=== PATIENT | male | born 1940 | race Caucasian/White ===

== ENCOUNTER 2016-03-11 18:14 | Inpatient (IN) | payer OTHER ==
[~2016-03-11] VITALS: Ht 182.9 cm; Wt 106.6 kg
[~2016-03-11 18:14] MED LIST: ACET-868 PO; ALBU8.5H2 IH; DILT180C9 PO; FLUT1DIS3 IH; FURO80TA PO; HYDR-3026 PO; INSU100V13 SQ; INSU100V27 SQ; IPRA3AMP IH; LIRA0.6P; METO25TA6 PO; ROSU10TA PO; TIOT4MIS5 IH; WARF5TAB77 PO; WARF6TAB23 PO
[2016-03-11 18:37] LABS: BASOPHILS # (AUTO) 0.4 /CMM (0.0-0.2); EOSINOPHILS # (AUTO) 0.3 /CMM (0.0-0.7); EOSINOPHILS % (AUTO) 4.1 % (0.0-6.0); HEMATOCRIT 31 % (39-51); LYMPHOCYTES # (AUTO) 0.8 /CMM (0.8-4.8); LYMPHOCYTES % (AUTO) 12.8 % (20.0-44.0); MEAN CORPUSCULAR HEMOGLOBIN 31 PG (26.0-33.0); MEAN CORPUSCULAR HGB CONC 33 g/dl (31.0-36.0); MEAN CORPUSCULAR VOLUME 96 fL (80-96); MONOCYTES # (AUTO) 0.3 /CMM (0.1-1.30); MONOCYTES % (AUTO) 4.7 % (2.0-12.0); NEUTROPHILS # (AUTO) 4.8 /CMM (1.8-8.9); PLATELET COUNT (AUTO) 222 /CMM (150-450); WHITE BLOOD COUNT (AUTO) 6.6 K/uL (4.3-11.0)
[2016-03-11 18:38] LABS: BASOPHILS % (AUTO) 6.4 % (0.0-2.0); DIFF TOTAL % 100 %
[2016-03-11 18:47] LABS: CALCIUM, SERUM 8.7 mg/dL (8.5-10.1); POTASSIUM 3.1 mmol/L (3.5-5.1)
[2016-03-11 18:51] LABS: INR 2.62 (0.87-1.13); PROTHROMBIN TIME 27.5 SECS (9.5-12.7)
[2016-03-11 19:27] LABS: TROPONIN I 0.042 ng/mL (0.00-0.056)
[2016-03-11 19:54] LABS: EOSINOPHILS % (MANUAL) 1 % (0-4); LYMPHOCYTES % (MANUAL) 13 % (16-48); PLATELET ESTIMATE ADEQUATE
[2016-03-11] MEDS ORDERED: POTASSIUM CHLORIDE 10 MEQ/50 ML PREMIXED IVPB FOR PERIPHERAL LINE IV ONE (20:00)
[2016-03-11] MEDS ORDERED: POTASSIUM CHLORIDE 20 MEQ TAB.PRT.SR PO ONE ×2 (20:00→20:40)
[2016-03-11] MEDS ORDERED: FUROSEMIDE 100 MG/10 ML VIAL IV ONE (20:30)
[2016-03-11] MEDS ORDERED: POTASSIUM CL. PREMIX PERIPHER. 200 ML ONE (20:40)
[2016-03-11] MEDS ORDERED: IV SET PRIMARY PUMP SET 1 EA INFUS.SET MC ONE (20:40)
[2016-03-11] MEDS ORDERED: FUROSEMIDE 100 MG/10 ML VIAL ONE (20:40)
[2016-03-11 22:30] VITALS: BP 128/66
[2016-03-11] MEDS ORDERED: ONDANSETRON HCL/PF 4 MG/2 ML VIAL IVP PRN (22:30)
[2016-03-11] MEDS ORDERED: HYDROCODONE/APAP 5/325MG 1 EACH TABLET PO PRN (22:30)
[2016-03-11] MEDS ORDERED: Z GUARD REMEDY 2 OZ OINT TP PRN (22:30)
[2016-03-11] MEDS ORDERED: MAGNESIUM HYDROXIDE 30 ML UDC PO PRN (22:30)
[2016-03-11] MEDS ORDERED: MAG HYDROX/AL HYDROX/SIMETH 30 ML UDC PO PRN (22:30)
[2016-03-11] MEDS ORDERED: ZOLPIDEM TARTRATE 5 MG TABLET PO PRN (22:30)
[2016-03-11] MEDS ORDERED: ACETAMINOPHEN 325 MG TABLET PO PRN (22:30)
[2016-03-12] VITALS (8 sets, daily range): BP systolic 112–135; BP diastolic 56–75
[2016-03-12] MEDS ORDERED: POTASSIUM CHLORIDE 20 MEQ TAB.PRT.SR PO ONE ×2 (00:21→00:30)
[2016-03-12] MEDS ORDERED: DEXTROSE 50%-WATER 50 ML DISP.SYRIN IV PRN (04:00)
[2016-03-12] MEDS ORDERED: Medication Not On Formulary EA (Ipratropium/Albuterol Sulfate (Duoneb 2.5-0.5 Mg/3 Ml So IH PRN (04:00)
[2016-03-12] MEDS ORDERED: ALBUTEROL SULFATE 8 GM HFA.AER.AD IH PRN (04:00)
[2016-03-12] MEDS ORDERED: ACETAMINOPHEN 325 MG TABLET ONE (05:44)
[2016-03-12] MEDS: BLOOD SUGAR DIAGNOSTIC 1 EACH STRIP IN SCH ×4 (06:24→21:20)
[2016-03-12] MEDS: *INSULIN REGULAR(HUMULIN R)HUM 100 UNIT/ML VIAL SQ PRN ×2 (06:27→21:30)
[2016-03-12 07:33] LABS: BASOPHILS % (AUTO) 0.7 % (0.0-2.0); DIFF TOTAL % 100 %; EOSINOPHILS # (AUTO) 0.3 /CMM (0.0-0.7); EOSINOPHILS % (AUTO) 5.8 % (0.0-6.0); HEMATOCRIT 30 % (39-51); HEMOGLOBIN 9.7 g/dL (13.5-17.5); LYMPHOCYTES # (AUTO) 0.6 /CMM (0.8-4.8); LYMPHOCYTES % (AUTO) 11.6 % (20.0-44.0); MEAN CORPUSCULAR HEMOGLOBIN 32 PG (26.0-33.0); MEAN CORPUSCULAR HGB CONC 33 g/dl (31.0-36.0); MEAN CORPUSCULAR VOLUME 97 fL (80-96); MONOCYTES # (AUTO) 0.4 /CMM (0.1-1.30); MONOCYTES % (AUTO) 6.6 % (2.0-12.0); NEUTROPHILS # (AUTO) 4.2 /CMM (1.8-8.9); NEUTROPHILS % (AUTO) 75.3 % (43.0-81.0); PLATELET COUNT (AUTO) 222 /CMM (150-450); RED BLOOD CELL COUNT(AUTO) 3.06 MIL/uL (4.5-6.0); WHITE BLOOD COUNT (AUTO) 5.6 K/uL (4.3-11.0)
[2016-03-12 07:49] LABS: CALCIUM, SERUM 8.3 mg/dL (8.5-10.1); CREATININE 1.8 mg/dL (0.6-1.3); PHOSPHORUS 3.3 mg/dL (2.5-4.9); POTASSIUM 3.7 mmol/L (3.5-5.1)
[2016-03-12] MEDS ORDERED: HEPARIN SODIUM, PORCINE 5000 UNITS/1 ML VIAL SQ SCH ×2 (09:00→21:00)
[2016-03-12] MEDS ORDERED: Medication Not On Formulary EA (Tiotropium Bromide (Spiriva Respimat) 2 PUFF) IH SCH (09:00)
[2016-03-12] MEDS ORDERED: FUROSEMIDE 20 MG/2 ML VIAL IV SCH (09:00)
[2016-03-12] MEDS ORDERED: Medication Not On Formulary EA (Liraglutide (Victoza) 1.8 MG) SCH (09:00)
[2016-03-12] MEDS ORDERED: WARFARIN SODIUM 5 MG TABLET PO SCH (09:00)
[2016-03-12] MEDS: FLUTICASONE/SALMETEROL DISKUS IH SCH ×2 (09:00→21:20)
[2016-03-12] MEDS: PANTOPRAZOLE 40 MG VIAL IV SCH (09:32)
[2016-03-12] MEDS: ALBUTEROL FS 2.5 MG/0.5 ML VIAL.NEB NEB SCH ×4 (11:37→23:11)
[2016-03-12] MEDS ORDERED: METOLAZONE 2.5 MG TABLET PO ONE (12:00)
[2016-03-12] MEDS ORDERED: hydrOXYzine PAMOATE 25 MG CAPSULE PO PRN (13:00)
[2016-03-12] MEDS: INSULIN REGULAR, HUMAN 100 UNIT/ML 3 ML VIAL SQ PRN ×2 (13:23→17:19)
[2016-03-12] MEDS ORDERED: ALBUTEROL FS 2.5 MG/0.5 ML VIAL.NEB NEB PRN (13:30)
[2016-03-12] MEDS: FUROSEMIDE 20 MG/2 ML VIAL IV SCH (17:17)
[2016-03-12] MEDS: METOPROLOL SUCCINATE 50 MG TAB.SR.24H PO SCH (17:18)
[2016-03-12] MEDS: ATORVASTATIN 10 MG TABLET PO SCH (21:19)
[2016-03-12] MEDS: INSULIN DETEMIR 100 UNIT/ML CARTRIDGE SQ SCH (21:30)
[2016-03-12] MEDS ORDERED: Medication Not On Formulary EA (Rosuvastatin Calcium (Crestor) 10 MG) PO SCH (22:00)
[2016-03-12] MEDS ORDERED: METOPROLOL TARTRATE 25 MG TABLET PO SCH (22:00)
[2016-03-13] VITALS (7 sets, daily range): BP systolic 100–134; BP diastolic 52–69
[2016-03-13] MEDS: ALBUTEROL FS 2.5 MG/0.5 ML VIAL.NEB NEB SCH ×6 (03:27→23:21)
[2016-03-13] MEDS: BLOOD SUGAR DIAGNOSTIC 1 EACH STRIP IN SCH ×4 (06:32→21:14)
[2016-03-13] MEDS: INSULIN REGULAR, HUMAN 100 UNIT/ML 3 ML VIAL SQ PRN ×3 (06:35→18:39)
[2016-03-13] MEDS: IPRATROPIUM NEB FS 0.5 MG/2.5 ML AMPUL.NEB NEB PRN ×3 (07:11→15:22)
[2016-03-13 07:38] LABS: BASOPHILS % (AUTO) 0.4 % (0.0-2.0); DIFF TOTAL % 100 %; EOSINOPHILS # (AUTO) 0.3 /CMM (0.0-0.7); EOSINOPHILS % (AUTO) 4.4 % (0.0-6.0); HEMATOCRIT 30 % (39-51); HEMOGLOBIN 9.8 g/dL (13.5-17.5); LYMPHOCYTES # (AUTO) 0.7 /CMM (0.8-4.8); LYMPHOCYTES % (AUTO) 12.2 % (20.0-44.0); MEAN CORPUSCULAR HEMOGLOBIN 32 PG (26.0-33.0); MEAN CORPUSCULAR HGB CONC 33 g/dl (31.0-36.0); MEAN CORPUSCULAR VOLUME 96 fL (80-96); MONOCYTES # (AUTO) 0.3 /CMM (0.1-1.30); MONOCYTES % (AUTO) 5.7 % (2.0-12.0); NEUTROPHILS # (AUTO) 4.4 /CMM (1.8-8.9); NEUTROPHILS % (AUTO) 77.3 % (43.0-81.0); PLATELET COUNT (AUTO) 205 /CMM (150-450); RED BLOOD CELL COUNT(AUTO) 3.09 MIL/uL (4.5-6.0); WHITE BLOOD COUNT (AUTO) 5.7 K/uL (4.3-11.0)
[2016-03-13 07:59] LABS: CALCIUM, SERUM 8.7 mg/dL (8.5-10.1); CREATININE 1.8 mg/dL (0.6-1.3); POTASSIUM 3.2 mmol/L (3.5-5.1)
[2016-03-13 08:01] LABS: INR 1.79 (0.87-1.13); PROTHROMBIN TIME 19.4 SECS (9.5-12.7)
[2016-03-13] MEDS: FLUTICASONE/SALMETEROL DISKUS IH SCH ×2 (10:36→20:23)
[2016-03-13] MEDS: PANTOPRAZOLE 40 MG VIAL IV SCH (10:36)
[2016-03-13] MEDS: FUROSEMIDE 20 MG/2 ML VIAL IV SCH ×2 (10:38→18:57)
[2016-03-13] MEDS ORDERED: POTASSIUM CHLORIDE 10 MEQ TABLET.SA PO ONE (12:00)
[2016-03-13] MEDS ORDERED: DILTIAZEM 240 MG PO SCH (14:00)
[2016-03-13] MEDS: METOPROLOL SUCCINATE 50 MG TAB.SR.24H PO SCH (17:00)
[2016-03-13] MEDS: WARFARIN SODIUM 2 MG TABLET PO SCH (18:56)
[2016-03-13] MEDS: ATORVASTATIN 10 MG TABLET PO SCH ×3 (21:14→21:19)
[2016-03-13] MEDS: DILTIAZEM HCL CD 180 MG PO SCH (21:15)
[2016-03-13] MEDS: INSULIN DETEMIR 100 UNIT/ML CARTRIDGE SQ SCH (21:24)
[2016-03-13] MEDS: *INSULIN REGULAR(HUMULIN R)HUM 100 UNIT/ML VIAL SQ PRN (21:26)
[2016-03-14] VITALS (10 sets, daily range): BP systolic 93–126; BP diastolic 55–69
[2016-03-14] MEDS: ALBUTEROL FS 2.5 MG/0.5 ML VIAL.NEB NEB SCH ×6 (03:30→23:26)
[2016-03-14] MEDS: INSULIN REGULAR, HUMAN 100 UNIT/ML 3 ML VIAL SQ PRN ×2 (06:18→12:38)
[2016-03-14] MEDS: BLOOD SUGAR DIAGNOSTIC 1 EACH STRIP IN SCH ×4 (06:19→21:20)
[2016-03-14 07:58] LABS: CALCIUM, SERUM 8.7 mg/dL (8.5-10.1); CREATININE 1.8 mg/dL (0.6-1.3)
[2016-03-14] MEDS: FLUTICASONE/SALMETEROL DISKUS IH SCH ×2 (09:20→21:05)
[2016-03-14] MEDS: FUROSEMIDE 20 MG/2 ML VIAL IV SCH ×2 (09:21→16:49)
[2016-03-14] MEDS: PANTOPRAZOLE 40 MG VIAL IV SCH (09:21)
[2016-03-14] MEDS: DILTIAZEM HCL CD 180 MG PO SCH (09:21)
[2016-03-14] MEDS ORDERED: POTASSIUM CHLORIDE 20 MEQ TAB.PRT.SR PO ONE (10:00)
[2016-03-14] MEDS ORDERED: POTASSIUM CHLORIDE 10 MEQ TABLET.SA PO ONE (11:00)
[2016-03-14] MEDS ORDERED: IPRATROPIUM NEB FS 0.5 MG/2.5 ML AMPUL.NEB NEB PRN (13:30)
[2016-03-14] MEDS ORDERED: GUAIFENESIN/CODEINE 10 ML UDC PO PRN (13:30)
[2016-03-14] MEDS ORDERED: LEVOFLOXACIN 750 MG /D5W 150ML 750 MG in PREMIX 1 EA IV SCH (14:00)
[2016-03-14] MEDS ORDERED: IV SET PRIMARY PUMP SET 1 EA INFUS.SET MC ONE (16:39)
[2016-03-14] MEDS: LEVOFLOXACIN 750 MG /D5W 150ML 750 MG in PREMIX 1 EA IV SCH (16:47)
[2016-03-14] MEDS: FLUTICASONE PROPIONATE 16 GM BOTTLE NS SCH ×2 (16:49→21:06)
[2016-03-14] MEDS: predniSONE 20 MG TABLET PO SCH (16:50)
[2016-03-14] MEDS: WARFARIN SODIUM 2 MG TABLET PO SCH (16:51)
[2016-03-14] MEDS: METOPROLOL SUCCINATE 50 MG TAB.SR.24H PO SCH (16:53)
[2016-03-14] MEDS: GUAIFENESIN 300 MG/15 ML UDC PO PRN (21:12)
[2016-03-14] MEDS: *INSULIN REGULAR(HUMULIN R)HUM 100 UNIT/ML VIAL SQ PRN (21:26)
[2016-03-14] MEDS: INSULIN DETEMIR 100 UNIT/ML CARTRIDGE SQ SCH (21:33)
[2016-03-14] MEDS: ATORVASTATIN 10 MG TABLET PO SCH (21:33)
[2016-03-15] VITALS (8 sets, daily range): BP systolic 101–120; BP diastolic 55–73
[2016-03-15] MEDS: ALBUTEROL FS 2.5 MG/0.5 ML VIAL.NEB NEB SCH ×6 (03:37→23:24)
[2016-03-15] MEDS: BLOOD SUGAR DIAGNOSTIC 1 EACH STRIP IN SCH ×4 (05:47→21:33)
[2016-03-15] MEDS: GUAIFENESIN 300 MG/15 ML UDC PO PRN ×2 (05:51→14:05)
[2016-03-15] MEDS: INSULIN REGULAR, HUMAN 100 UNIT/ML 3 ML VIAL SQ PRN ×3 (05:55→17:18)
[2016-03-15] MEDS: IPRATROPIUM NEB FS 0.5 MG/2.5 ML AMPUL.NEB NEB PRN (07:44)
[2016-03-15 08:28] LABS: DIFF TOTAL % 100 %; EOSINOPHILS % (AUTO) 0.2 % (0.0-6.0); HEMATOCRIT 30 % (39-51); HEMOGLOBIN 9.8 g/dL (13.5-17.5); LYMPHOCYTES # (AUTO) 0.3 /CMM (0.8-4.8); LYMPHOCYTES % (AUTO) 4.1 % (20.0-44.0); MEAN CORPUSCULAR HEMOGLOBIN 32 PG (26.0-33.0); MEAN CORPUSCULAR HGB CONC 33 g/dl (31.0-36.0); MEAN CORPUSCULAR VOLUME 96 fL (80-96); MONOCYTES # (AUTO) 0.2 /CMM (0.1-1.30); MONOCYTES % (AUTO) 2.8 % (2.0-12.0); NEUTROPHILS % (AUTO) 92.9 % (43.0-81.0); PLATELET COUNT (AUTO) 213 /CMM (150-450); RED BLOOD CELL COUNT(AUTO) 3.07 MIL/uL (4.5-6.0); WHITE BLOOD COUNT (AUTO) 7.5 K/uL (4.3-11.0)
[2016-03-15] MEDS: predniSONE 20 MG TABLET PO SCH (08:36)
[2016-03-15] MEDS: PANTOPRAZOLE 40 MG VIAL IV SCH (08:36)
[2016-03-15] MEDS: DILTIAZEM HCL CD 180 MG PO SCH (08:37)
[2016-03-15] MEDS: FUROSEMIDE 20 MG/2 ML VIAL IV SCH ×2 (08:37→17:19)
[2016-03-15 08:53] LABS: CALCIUM, SERUM 8.5 mg/dL (8.5-10.1); CREATININE 2.1 mg/dL (0.6-1.3); PHOSPHORUS 4.2 mg/dL (2.5-4.9); POTASSIUM 4.2 mmol/L (3.5-5.1)
[2016-03-15] MEDS: FLUTICASONE/SALMETEROL DISKUS IH SCH ×2 (08:57→21:33)
[2016-03-15] MEDS: FLUTICASONE PROPIONATE 16 GM BOTTLE NS SCH ×2 (08:57→17:19)
[2016-03-15 13:39] LABS: INR 1.69 (0.87-1.13); PROTHROMBIN TIME 18.3 SECS (9.5-12.7)
[2016-03-15] MEDS: METOPROLOL SUCCINATE 50 MG TAB.SR.24H PO SCH (17:00)
[2016-03-15] MEDS: WARFARIN SODIUM 2 MG TABLET PO SCH (17:22)
[2016-03-15] MEDS: *INSULIN REGULAR(HUMULIN R)HUM 100 UNIT/ML VIAL SQ PRN (21:39)
[2016-03-15] MEDS: INSULIN DETEMIR 100 UNIT/ML CARTRIDGE SQ SCH (21:40)
[2016-03-15] MEDS: ATORVASTATIN 10 MG TABLET PO SCH (21:54)
[2016-03-16] MEDS: ALBUTEROL FS 2.5 MG/0.5 ML VIAL.NEB NEB SCH ×6 (03:20→23:14)
[2016-03-16] MEDS: BLOOD SUGAR DIAGNOSTIC 1 EACH STRIP IN SCH ×4 (05:05→21:29)
[2016-03-16 06:14] LABS: BASOPHILS % (AUTO) 0.1 % (0.0-2.0); DIFF TOTAL % 100 %; EOSINOPHILS % (AUTO) 0.6 % (0.0-6.0); HEMATOCRIT 29 % (39-51); HEMOGLOBIN 9.2 g/dL (13.5-17.5); LYMPHOCYTES # (AUTO) 0.5 /CMM (0.8-4.8); LYMPHOCYTES % (AUTO) 5.9 % (20.0-44.0); MEAN CORPUSCULAR HEMOGLOBIN 31 PG (26.0-33.0); MEAN CORPUSCULAR HGB CONC 32 g/dl (31.0-36.0); MEAN CORPUSCULAR VOLUME 97 fL (80-96); MONOCYTES # (AUTO) 0.5 /CMM (0.1-1.30); MONOCYTES % (AUTO) 6.6 % (2.0-12.0); NEUTROPHILS # (AUTO) 6.9 /CMM (1.8-8.9); NEUTROPHILS % (AUTO) 86.8 % (43.0-81.0); PLATELET COUNT (AUTO) 199 /CMM (150-450); RED BLOOD CELL COUNT(AUTO) 2.95 MIL/uL (4.5-6.0)
[2016-03-16 06:32] LABS: CREATININE 2.1 mg/dL (0.6-1.3); PHOSPHORUS 4.3 mg/dL (2.5-4.9)
[2016-03-16] MEDS: INSULIN REGULAR, HUMAN 100 UNIT/ML 3 ML VIAL SQ PRN ×3 (06:34→17:01)
[2016-03-16] MEDS: IPRATROPIUM NEB FS 0.5 MG/2.5 ML AMPUL.NEB NEB PRN ×3 (07:34→14:30)
[2016-03-16 08:00] VITALS: BP 108/59
[2016-03-16] MEDS: FLUTICASONE/SALMETEROL DISKUS IH SCH ×2 (08:52→21:24)
[2016-03-16] MEDS: FLUTICASONE PROPIONATE 16 GM BOTTLE NS SCH ×2 (08:52→16:51)
[2016-03-16] MEDS: PANTOPRAZOLE 40 MG VIAL IV SCH (08:53)
[2016-03-16] MEDS: FUROSEMIDE 20 MG/2 ML VIAL IV SCH ×2 (08:53→21:24)
[2016-03-16] MEDS: predniSONE 20 MG TABLET PO SCH (08:53)
[2016-03-16] MEDS: DILTIAZEM HCL CD 180 MG PO SCH (08:54)
[2016-03-16] MEDS ORDERED: METO50TA7 PO (13:28)
[2016-03-16] MEDS ORDERED: [UNRECOGNIZED DRUG - SUPPLY] (13:28)
[2016-03-16] MEDS ORDERED: PRED20TA GT (13:28)
[2016-03-16] MEDS ORDERED: LEVO750T21 GT (13:28)
[2016-03-16] MEDS ORDERED: DILT180C66 PO (13:28)
[2016-03-16] MEDS ORDERED: GUAI100S11 PO (13:28)
[2016-03-16] MEDS ORDERED: ATOR10TA PO (13:28)
[2016-03-16] MEDS ORDERED: PRED20TA PO (13:28)
[2016-03-16] MEDS ORDERED: PRED10TA PO (13:28)
[2016-03-16 13:56] LABS: ABG BASE EXCESS 2.4 mmol/L; ABG HCO3 28.3 mmol/L; ABG PCO2 50.6 mmHg (35.0-45.0); ABG PH 7.366 (7.350-7.450); ABG PO2 54.1 mmHg (75.0-100.0); ALLEN TEST Pass; O2Hb 83.2 % (94.0-97.0)
[2016-03-16] MEDS ORDERED: FUROSEMIDE 40 MG/4 ML VIAL IV ONE (14:30)
[2016-03-16] MEDS ORDERED: SECONDARY IV SET 1 EA INFUS.SET MC ONE (14:52)
[2016-03-16] MEDS: LEVOFLOXACIN 750 MG /D5W 150ML 750 MG in PREMIX 1 EA IV SCH (15:09)
[2016-03-16 16:40] VITALS: BP 107/68
[2016-03-16] MEDS: METOPROLOL SUCCINATE 50 MG TAB.SR.24H PO SCH (16:57)
[2016-03-16 18:59] LABS: INR 1.71 (0.87-1.13); PROTHROMBIN TIME 18.6 SECS (9.5-12.7)
[2016-03-16] MEDS: GUAIFENESIN 300 MG/15 ML UDC PO PRN (19:45)
[2016-03-16] MEDS: WARFARIN SODIUM 2 MG TABLET PO SCH (19:47)
[2016-03-16 20:00] VITALS: BP 97/54
[2016-03-16] MEDS: ATORVASTATIN 10 MG TABLET PO SCH (21:27)
[2016-03-16] MEDS: INSULIN DETEMIR 100 UNIT/ML CARTRIDGE SQ SCH (21:35)
[2016-03-17] MEDS: *INSULIN REGULAR(HUMULIN R)HUM 100 UNIT/ML VIAL SQ PRN (00:07)
[2016-03-17] MEDS: ALBUTEROL FS 2.5 MG/0.5 ML VIAL.NEB NEB SCH ×3 (03:31→11:08)
[2016-03-17] MEDS: BLOOD SUGAR DIAGNOSTIC 1 EACH STRIP IN SCH (06:47)
[2016-03-17 07:24] LABS: INR 1.67 (0.87-1.13); PROTHROMBIN TIME 18.1 SECS (9.5-12.7)
[2016-03-17 08:00] VITALS: BP 103/68
[2016-03-17] MEDS: PANTOPRAZOLE 40 MG VIAL IV SCH (08:14)
[2016-03-17] MEDS: FLUTICASONE/SALMETEROL DISKUS IH SCH (08:14)
[2016-03-17] MEDS: FLUTICASONE PROPIONATE 16 GM BOTTLE NS SCH (08:14)
[2016-03-17 08:15] VITALS: BP 103/68
[2016-03-17] MEDS: DILTIAZEM HCL CD 180 MG PO SCH (08:15)
[2016-03-17] MEDS: FUROSEMIDE 20 MG/2 ML VIAL IV SCH (08:15)
[2016-03-17] MEDS: predniSONE 20 MG TABLET PO SCH (08:16)
[2016-03-17] MEDS: GUAIFENESIN 300 MG/15 ML UDC PO PRN (08:25)
[2016-03-17] MEDS ORDERED: WARF5TAB6 PO (09:42)
== END 2016-03-17 11:55 | disposition home health service (06) | DRG 291 ==
LOC: ER 18:16 → TELE2 20:03 → TELE 22:11 → MED 03-15 09:10
PROVIDERS: ADMIT Family Medicine; ATTEND Internal Medicine
DX: I13.0 Hypertensive heart and chronic kidney disease with heart failure and stage 1 through stage 4 chronic kidney disease, or unspecified chronic kidney disease (principal); J96.01 Acute respiratory failure with hypoxia; I50.43 Acute on chronic combined systolic (congestive) and diastolic (congestive) heart failure; N17.9 Acute kidney failure, unspecified; L03.115 Cellulitis of right lower limb; D68.59 Other primary thrombophilia; J44.1 Chronic obstructive pulmonary disease with (acute) exacerbation; L97.919 Non-pressure chronic ulcer of unspecified part of right lower leg with unspecified severity; E44.0 Moderate protein-calorie malnutrition; Z95.0 Presence of cardiac pacemaker; Z88.5 Allergy status to narcotic agent; Z86.73 Personal history of transient ischemic attack (TIA), and cerebral infarction without residual deficits; Z88.0 Allergy status to penicillin; Z88.8 Allergy status to other drugs, medicaments and biological substances; E11.22 Type 2 diabetes mellitus with diabetic chronic kidney disease; Z87.891 Personal history of nicotine dependence; E87.6 Hypokalemia; I27.2 Other secondary pulmonary hypertension; D63.1 Anemia in chronic kidney disease; I48.2 Chronic atrial fibrillation; N18.3 Chronic kidney disease, stage 3 (moderate); I42.9 Cardiomyopathy, unspecified; E78.5 Hyperlipidemia, unspecified; E66.9 Obesity, unspecified; Z68.31 Body mass index [BMI] 31.0-31.9, adult; I25.10 Atherosclerotic heart disease of native coronary artery without angina pectoris
CPT/HCPCS: 36415; 36600; 71010-TC; 80048-TC; 82962-TC; 83735-TC; 84100-TC; 84484-TC; 85025-TC; 85610-TC; 85730-TC; 87081-TC; 93970-TC; 94799-TC; 97001-TC; 97003-TC; 97110-TC; 97116-TC; 97530-TC; A4216; A4606; A6402; A6403; C9113; J1644; J1815; J1940; J1956; J3480; Q0177; Z7610

== ENCOUNTER 2016-03-22 22:16 | Emergency (ER) | payer OTHER ==
[~2016-03-22 22:16] MED LIST changes: +ATOR10TA PO; +DILT180C66 PO; +GUAI100S11 PO; +LEVO750T21 GT; +METO50TA7 PO; +PRED10TA PO; +PRED20TA GT; +PRED20TA PO; +WARF5TAB6 PO; -WARF5TAB77 PO; -WARF6TAB23 PO; +[UNRECOGNIZED DRUG - SUPPLY]
== END 2016-03-22 22:35 | disposition left against medical advice (07) ==
LOC: ER 22:20
DX: Z53.21 Procedure and treatment not carried out due to patient leaving prior to being seen by health care provider (principal)

== ENCOUNTER 2016-04-04 12:27 | Emergency (ER) | payer OTHER ==
[~2016-04-04] VITALS: Ht 177.8 cm; Wt 90.7 kg
[~2016-04-04 12:27] MED LIST changes: -FURO80TA PO; +FURO80TA85 PO; -INSU100V13 SQ; +INSU100V7 SQ; -LIRA0.6P; +LIRA0.6P SQ
[2016-04-04] MEDS ORDERED: ACET1TAB82 PO (13:37)
[2016-04-04] MEDS ORDERED: METO25TA6 PO (13:37)
[2016-04-04] MEDS ORDERED: LOSA25TA13 PO (13:37)
[2016-04-04] MEDS ORDERED: WARF2TAB6 PO (13:37)
[2016-04-04] MEDS ORDERED: CHOL100044 PO (13:39)
[2016-04-04 14:05] VITALS: BP 101/55
== END 2016-04-04 14:06 | disposition home or self-care (01) ==
LOC: ER 12:30
DX: M25.572 Pain in left ankle and joints of left foot (principal); I10 Essential (primary) hypertension; J44.9 Chronic obstructive pulmonary disease, unspecified; F10.20 Alcohol dependence, uncomplicated; E11.9 Type 2 diabetes mellitus without complications; Z88.1 Allergy status to other antibiotic agents; Z88.0 Allergy status to penicillin; Z88.8 Allergy status to other drugs, medicaments and biological substances; F17.210 Nicotine dependence, cigarettes, uncomplicated
CPT/HCPCS: 73610-TC; A4606; Z7610

== ENCOUNTER 2016-05-11 14:25 | Inpatient (IN) | payer OTHER ==
[~2016-05-11] VITALS: Ht 177.8 cm; Wt 108.0 kg
[~2016-05-11 14:25] MED LIST changes: -ACET-868 PO; +ACET1TAB82 PO; -ALBU8.5H2 IH; -ATOR10TA PO; +CHOL100044 PO; -DILT180C66 PO; -DILT180C9 PO; -FLUT1DIS3 IH; -GUAI100S11 PO; -HYDR-3026 PO; -IPRA3AMP IH; -LEVO750T21 GT; +LOSA25TA13 PO; -METO50TA7 PO; -PRED10TA PO; -PRED20TA GT; -PRED20TA PO; -TIOT4MIS5 IH; +WARF2TAB6 PO; -WARF5TAB6 PO
[2016-05-11 15:11] LABS: BASOPHILS # (AUTO) 0.4 /CMM (0.0-0.2); BASOPHILS % (AUTO) 4.7 % (0.0-2.0); DIFF TOTAL % 100 %; EOSINOPHILS # (AUTO) 0.2 /CMM (0.0-0.7); EOSINOPHILS % (AUTO) 2.4 % (0.0-6.0); HEMATOCRIT 30 % (39-51); LYMPHOCYTES # (AUTO) 0.4 /CMM (0.8-4.8); MEAN CORPUSCULAR HEMOGLOBIN 31 PG (26.0-33.0); MEAN CORPUSCULAR HGB CONC 33 g/dl (31.0-36.0); MEAN CORPUSCULAR VOLUME 92 fL (80-96); MONOCYTES # (AUTO) 0.4 /CMM (0.1-1.30); MONOCYTES % (AUTO) 4.5 % (2.0-12.0); NEUTROPHILS # (AUTO) 6.8 /CMM (1.8-8.9); NEUTROPHILS % (AUTO) 83.4 % (43.0-81.0); PLATELET COUNT (AUTO) 191 /CMM (150-450); RED BLOOD CELL COUNT(AUTO) 3.27 MIL/uL (4.5-6.0); WHITE BLOOD COUNT (AUTO) 8.2 K/uL (4.3-11.0)
[2016-05-11 15:16] LABS: ANION GAP 11 (5-14); CALCIUM, SERUM 8.7 mg/dL (8.5-10.1); CARBON DIOXIDE 27 mmol/L (21-32); CHLORIDE 105 mmol/L (98-107); CREATININE 1.6 mg/dL (0.6-1.3); GLUCOSE 173 mg/dL (74-106); POTASSIUM 3.9 mmol/L (3.5-5.1); SODIUM SERUM 139 mmol/L (136-145); UREA NITROGEN, BLOOD 44 mg/dL (7-18)
[2016-05-11 15:19] LABS: TROPONIN I 0.039 ng/mL (0.00-0.056)
[2016-05-11 15:32] LABS: LACTIC ACID 2.1 mmol/L (0.4-2.0)
[2016-05-11 16:00] LABS: *LACTIC ACID REFLEX FLAG YES
[2016-05-11 16:05] LABS: KETONES,URINE Negative (NEGATIVE); LEUKOCYTE ESTERASE ,URINE Negative (NEGATIVE)
[2016-05-11 16:22] LABS: ADD UA MICROSCOPIC YES
[2016-05-11 16:44] LABS: ADD URINE CULTURE NO; WBC,URINE 0-2 /HPF (0-3)
[2016-05-11 17:28] LABS: BILIRUBIN,DIRECT 0.3 mg/dL (0.0-0.2); BILIRUBIN,TOTAL 0.9 mg/dL (0.2-1.0)
[2016-05-11] MEDS ORDERED: VALS80TA2 PO (19:15)
[2016-05-11] MEDS ORDERED: FUROSEMIDE 40 MG/4 ML VIAL IV SCH (20:00)
[2016-05-11] MEDS ORDERED: FUROSEMIDE 40 MG/4 ML VIAL ONE (20:53)
[2016-05-11 21:50] VITALS: BP 121/71
[2016-05-11 22:00] VITALS: BP 121/71
[2016-05-11] MEDS: ATORVASTATIN 10 MG TABLET PO SCH ×2 (22:00→22:48)
[2016-05-11] MEDS: INSULIN DETEMIR 100 UNIT/ML CARTRIDGE SQ SCH (22:00)
[2016-05-11] MEDS: CHOLECALCIFEROL 1,000 UNIT TABLET (VIT D3) PO SCH (22:00)
[2016-05-11] MEDS: FUROSEMIDE 40 MG/4 ML VIAL IV SCH (22:14)
[2016-05-11] MEDS ORDERED: ZOLPIDEM TARTRATE 5 MG TABLET PO PRN (22:30)
[2016-05-11] MEDS ORDERED: ENOXAPARIN SODIUM 30 MG/0.3 ML DISP.SYRIN SQ SCH (22:30)
[2016-05-11] MEDS ORDERED: ONDANSETRON HCL/PF 4 MG/2 ML VIAL IVP PRN (22:30)
[2016-05-11] MEDS ORDERED: MAG HYDROX/AL HYDROX/SIMETH 30 ML UDC PO PRN (22:30)
[2016-05-11] MEDS ORDERED: Z GUARD REMEDY 2 OZ OINT TP PRN (22:30)
[2016-05-11] MEDS ORDERED: ACETAMINOPHEN 325 MG TABLET PO PRN (22:30)
[2016-05-11] MEDS ORDERED: MAGNESIUM HYDROXIDE 30 ML UDC PO PRN (22:30)
[2016-05-11] MEDS ORDERED: HYDROCODONE/APAP 5/325MG 1 EACH TABLET PO PRN (22:30)
[2016-05-11] MEDS ORDERED: ATORVASTATIN 10 MG TABLET ONE (22:37)
[2016-05-11] MEDS ORDERED: DEXTROSE 50%-WATER 50 ML DISP.SYRIN IV PRN (23:00)
[2016-05-11] MEDS ORDERED: MORPHINE SULFATE INJ 2 MG/ML DISP.SYRIN ONE (23:30)
[2016-05-11] MEDS: MORPHINE SULFATE INJ 2 MG/ML DISP.SYRIN IV PRN (23:35)
[2016-05-12 02:00] VITALS: BP 114/61
[2016-05-12 04:12] VITALS: BP 114/61
[2016-05-12] MEDS: BLOOD SUGAR DIAGNOSTIC 1 EACH STRIP IN SCH ×4 (05:44→21:58)
[2016-05-12] MEDS: INSULIN REGULAR, HUMAN 100 UNIT/ML 3 ML VIAL SQ PRN ×3 (05:48→17:49)
[2016-05-12 06:58] LABS: BASOPHILS # (AUTO) 0.1 /CMM (0.0-0.2); BASOPHILS % (AUTO) 0.9 % (0.0-2.0); DIFF TOTAL % 100 %; EOSINOPHILS # (AUTO) 0.3 /CMM (0.0-0.7); EOSINOPHILS % (AUTO) 4.3 % (0.0-6.0); HEMATOCRIT 28 % (39-51); HEMOGLOBIN 9.3 g/dL (13.5-17.5); LYMPHOCYTES # (AUTO) 0.6 /CMM (0.8-4.8); LYMPHOCYTES % (AUTO) 8.5 % (20.0-44.0); MEAN CORPUSCULAR HEMOGLOBIN 30 PG (26.0-33.0); MEAN CORPUSCULAR HGB CONC 33 g/dl (31.0-36.0); MEAN CORPUSCULAR VOLUME 92 fL (80-96); MONOCYTES # (AUTO) 0.2 /CMM (0.1-1.30); MONOCYTES % (AUTO) 2.7 % (2.0-12.0); NEUTROPHILS # (AUTO) 5.6 /CMM (1.8-8.9); NEUTROPHILS % (AUTO) 83.6 % (43.0-81.0); PLATELET COUNT (AUTO) 193 /CMM (150-450); RED BLOOD CELL COUNT(AUTO) 3.09 MIL/uL (4.5-6.0); WHITE BLOOD COUNT (AUTO) 6.7 K/uL (4.3-11.0)
[2016-05-12 07:13] LABS: CALCIUM, SERUM 8.7 mg/dL (8.5-10.1); CREATININE 1.6 mg/dL (0.6-1.3); PHOSPHORUS 2.4 mg/dL (2.5-4.9); POTASSIUM 3.5 mmol/L (3.5-5.1)
[2016-05-12 07:18] LABS: THYROID STIMULATING HORMONE 1.333 uIU/mL (0.358-3.74)
[2016-05-12 08:00] VITALS: BP 118/68
[2016-05-12] MEDS: FUROSEMIDE 40 MG/4 ML VIAL IV SCH ×2 (08:55→17:44)
[2016-05-12] MEDS: METOPROLOL TARTRATE 50 MG TABLET PO SCH ×2 (08:56→21:51)
[2016-05-12] MEDS: VALSARTAN 80 MG TABLET PO SCH (08:56)
[2016-05-12] MEDS: PANTOPRAZOLE 40 MG TABLET.DR PO SCH (08:59)
[2016-05-12] MEDS ORDERED: ASPIRIN EC 81 MG TABLET.DR PO SCH (09:00)
[2016-05-12] MEDS ORDERED: K PHOS NEUTRAL 250 MG TABLET PO ONE (15:30)
[2016-05-12 16:00] VITALS: BP 105/67
[2016-05-12] MEDS ORDERED: WARFARIN SODIUM 2 MG TABLET PO SCH (18:00)
[2016-05-12 20:00] VITALS: BP 126/91
[2016-05-12 20:53] VITALS: BP 126/91
[2016-05-12] MEDS ORDERED: ENOXAPARIN SODIUM 40 MG/0.4 ML DISP.SYRIN SQ SCH (21:00)
[2016-05-12] MEDS: ATORVASTATIN 10 MG TABLET PO SCH (21:51)
[2016-05-12] MEDS: CHOLECALCIFEROL 1,000 UNIT TABLET (VIT D3) PO SCH (21:51)
[2016-05-12] MEDS: INSULIN DETEMIR 100 UNIT/ML CARTRIDGE SQ SCH (21:55)
[2016-05-12 22:50] LABS: PROTHROMBIN TIME 21.8 SECS (9.5-12.7)
[2016-05-13] MEDS: MORPHINE SULFATE INJ 2 MG/ML DISP.SYRIN IV PRN (02:01)
[2016-05-13 07:36] LABS: BASOPHILS % (AUTO) 0.4 % (0.0-2.0); DIFF TOTAL % 100 %; EOSINOPHILS # (AUTO) 0.4 /CMM (0.0-0.7); HEMATOCRIT 30 % (39-51); LYMPHOCYTES # (AUTO) 0.6 /CMM (0.8-4.8); LYMPHOCYTES % (AUTO) 9.5 % (20.0-44.0); MEAN CORPUSCULAR HEMOGLOBIN 31 PG (26.0-33.0); MEAN CORPUSCULAR HGB CONC 33 g/dl (31.0-36.0); MEAN CORPUSCULAR VOLUME 92 fL (80-96); MONOCYTES # (AUTO) 0.3 /CMM (0.1-1.30); MONOCYTES % (AUTO) 4.7 % (2.0-12.0); NEUTROPHILS # (AUTO) 5.2 /CMM (1.8-8.9); NEUTROPHILS % (AUTO) 79.4 % (43.0-81.0); PLATELET COUNT (AUTO) 199 /CMM (150-450); RED BLOOD CELL COUNT(AUTO) 3.29 MIL/uL (4.5-6.0); WHITE BLOOD COUNT (AUTO) 6.6 K/uL (4.3-11.0)
[2016-05-13 07:41] LABS: INR 1.6 (0.87-1.13); PROTHROMBIN TIME 17.4 SECS (9.5-12.7)
[2016-05-13 07:45] LABS: CALCIUM, SERUM 8.7 mg/dL (8.5-10.1); CREATININE 1.6 mg/dL (0.6-1.3); PHOSPHORUS 3.7 mg/dL (2.5-4.9); POTASSIUM 3.6 mmol/L (3.5-5.1)
[2016-05-13] MEDS: PANTOPRAZOLE 40 MG TABLET.DR PO SCH (07:53)
[2016-05-13 08:00] VITALS: BP 109/67
[2016-05-13] MEDS: FUROSEMIDE 40 MG/4 ML VIAL IV SCH (08:18)
[2016-05-13] MEDS: VALSARTAN 80 MG TABLET PO SCH (08:19)
[2016-05-13] MEDS: METOPROLOL TARTRATE 50 MG TABLET PO SCH (08:19)
[2016-05-13] MEDS ORDERED: LEVOFLOXACIN 750 MG /D5W 150ML 750 MG in PREMIX 1 EA IV SCH ×2 (10:30→12:00)
[2016-05-13] MEDS ORDERED: oxyCODONE/APAP (5/325 MG) 1 UDTAB TABLET PO PRN (10:30)
[2016-05-13] MEDS ORDERED: IV SET PRIMARY PUMP SET 1 EA INFUS.SET MC ONE (11:14)
[2016-05-13] MEDS ORDERED: IV NS 0.9% 250 ML IV ONE (11:14)
[2016-05-13] MEDS ORDERED: SECONDARY IV SET 1 EA INFUS.SET MC ONE (11:14)
[2016-05-13] MEDS: INSULIN REGULAR, HUMAN 100 UNIT/ML 3 ML VIAL SQ PRN (12:23)
[2016-05-13] MEDS: BLOOD SUGAR DIAGNOSTIC 1 EACH STRIP IN SCH ×4 (12:59→21:17)
[2016-05-13 16:00] VITALS: BP 97/57
[2016-05-13] MEDS ORDERED: WARFARIN SODIUM 2 MG TABLET PO SCH (17:00)
[2016-05-13] MEDS: FUROSEMIDE 40 MG TABLET PO SCH (19:08)
[2016-05-13] MEDS: DILTIAZEM HCL CD 120 MG PO SCH (19:08)
[2016-05-13 20:00] VITALS: BP 103/69
[2016-05-13 20:32] VITALS: BP 103/69
[2016-05-13] MEDS: ATORVASTATIN 10 MG TABLET PO SCH (21:16)
[2016-05-13] MEDS: CHOLECALCIFEROL 1,000 UNIT TABLET (VIT D3) PO SCH (21:16)
[2016-05-13] MEDS ORDERED: INSULIN DETEMIR 100 UNIT/ML CARTRIDGE SQ SCH (22:00)
[2016-05-14] MEDS: MORPHINE SULFATE INJ 2 MG/ML DISP.SYRIN IV PRN (00:40)
[2016-05-14] MEDS: BLOOD SUGAR DIAGNOSTIC 1 EACH STRIP IN SCH ×2 (06:27→12:16)
[2016-05-14 07:24] LABS: BASOPHILS % (AUTO) 0.1 % (0.0-2.0); DIFF TOTAL % 100 %; EOSINOPHILS # (AUTO) 0.4 /CMM (0.0-0.7); EOSINOPHILS % (AUTO) 7.4 % (0.0-6.0); HEMATOCRIT 27 % (39-51); LYMPHOCYTES # (AUTO) 0.5 /CMM (0.8-4.8); LYMPHOCYTES % (AUTO) 8.8 % (20.0-44.0); MEAN CORPUSCULAR HEMOGLOBIN 30 PG (26.0-33.0); MEAN CORPUSCULAR HGB CONC 33 g/dl (31.0-36.0); MEAN CORPUSCULAR VOLUME 92 fL (80-96); MONOCYTES # (AUTO) 0.3 /CMM (0.1-1.30); MONOCYTES % (AUTO) 4.7 % (2.0-12.0); NEUTROPHILS # (AUTO) 4.2 /CMM (1.8-8.9); PLATELET COUNT (AUTO) 195 /CMM (150-450); RED BLOOD CELL COUNT(AUTO) 2.98 MIL/uL (4.5-6.0); WHITE BLOOD COUNT (AUTO) 5.4 K/uL (4.3-11.0)
[2016-05-14 07:32] LABS: INR 1.6 (0.87-1.13); PROTHROMBIN TIME 17.4 SECS (9.5-12.7)
[2016-05-14 07:44] LABS: CALCIUM, SERUM 8.4 mg/dL (8.5-10.1); CREATININE 1.5 mg/dL (0.6-1.3); PHOSPHORUS 3.5 mg/dL (2.5-4.9); POTASSIUM 3.4 mmol/L (3.5-5.1)
[2016-05-14 08:00] VITALS: BP 93/72
[2016-05-14] MEDS: FUROSEMIDE 40 MG TABLET PO SCH (08:05)
[2016-05-14] MEDS: PANTOPRAZOLE 40 MG TABLET.DR PO SCH (08:05)
[2016-05-14] MEDS: VALSARTAN 80 MG TABLET PO SCH (08:05)
[2016-05-14] MEDS: DILTIAZEM HCL CD 120 MG PO SCH (08:05)
[2016-05-14] MEDS ORDERED: POTASSIUM CHLORIDE 10 MEQ TABLET.SA PO ONE (11:30)
[2016-05-14] MEDS ORDERED: NEOMY SULF/BACITRAC ZN/POLY 15 GM TUBE TP SCH (12:00)
[2016-05-14] MEDS: INSULIN REGULAR, HUMAN 100 UNIT/ML 3 ML VIAL SQ PRN (12:17)
[2016-05-14] MEDS ORDERED: LEVO750T21 PO (14:14)
[2016-05-14] MEDS ORDERED: DILT120C87 PO (14:14)
[2016-05-14 16:30] VITALS: BP 120/82
[2016-05-14] MEDS ORDERED: METOPROLOL SUCCINATE 50 MG TAB.SR.24H PO SCH (16:30)
== END 2016-05-14 16:45 | disposition home or self-care (01) | DRG 291 ==
LOC: ER 14:27 → MED 19:37 → TELE 05-12 00:16 → MED 05-12 10:57
PROVIDERS: ADMIT Internal Medicine; ATTEND Internal Medicine
DX: I13.0 Hypertensive heart and chronic kidney disease with heart failure and stage 1 through stage 4 chronic kidney disease, or unspecified chronic kidney disease (principal); I50.33 Acute on chronic diastolic (congestive) heart failure; J96.01 Acute respiratory failure with hypoxia; D68.59 Other primary thrombophilia; E44.0 Moderate protein-calorie malnutrition; I42.9 Cardiomyopathy, unspecified; E11.22 Type 2 diabetes mellitus with diabetic chronic kidney disease; I25.10 Atherosclerotic heart disease of native coronary artery without angina pectoris; N18.3 Chronic kidney disease, stage 3 (moderate); W18.30XA Fall on same level, unspecified, initial encounter; D63.8 Anemia in other chronic diseases classified elsewhere; E78.5 Hyperlipidemia, unspecified; E66.9 Obesity, unspecified; I27.2 Other secondary pulmonary hypertension; I48.2 Chronic atrial fibrillation; Z86.73 Personal history of transient ischemic attack (TIA), and cerebral infarction without residual deficits; Z87.891 Personal history of nicotine dependence; Z95.0 Presence of cardiac pacemaker; Z68.34 Body mass index [BMI] 34.0-34.9, adult; S92.415A Nondisplaced fracture of proximal phalanx of left great toe, initial encounter for closed fracture; Y93.9 Activity, unspecified; Y92.009 Unspecified place in unspecified non-institutional (private) residence as the place of occurrence of the external cause; Y99.9 Unspecified external cause status; M25.552 Pain in left hip; S51.002A Unspecified open wound of left elbow, initial encounter; S60.222A Contusion of left hand, initial encounter; X58.XXXA Exposure to other specified factors, initial encounter; Z88.0 Allergy status to penicillin
CPT/HCPCS: 36415; 71010-TC; 72170-TC; 73550-TC; 73590-TC; 73630-TC; 73700-TC; 80048-TC; 80061-TC; 81000-TC; 82247-TC; 82248-TC; 82962-TC; 83605-TC; 83735-TC; 83880; 84100-TC; 84443-TC; 84484-TC; 85025-TC; 85610-TC; 87040-TC; 87081-TC; 94799-TC; 97001-TC; 97116-TC; 97530-TC; A4216; A4606; J1815; J1940; J1956; J2270; J7050; Z7610

== ENCOUNTER 2016-06-28 12:47 | Emergency (ER) | payer OTHER ==
[~2016-06-28] VITALS: Ht 170.2 cm; Wt 99.3 kg
[~2016-06-28 12:47] MED LIST changes: +DILT120C87 PO; +LEVO750T21 PO; -LOSA25TA13 PO; +VALS80TA2 PO; -[UNRECOGNIZED DRUG - SUPPLY]
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
--- NOTE | 2016-06-28 13:36 | NUR ---
XRAY AT BEDSIDE
--- NOTE | 2016-06-28 13:36 | NUR ---
DR RAYN AT BEDSIDE.
--- NOTE | 2016-06-28 13:45 | NUR ---
BLOOD SAMPLE COLLECTED SENT TO LAB
[2016-06-28] MEDS ORDERED: ACETAMINOPHEN ES 500 MG TABLET ONE (13:51)
[2016-06-28] MEDS ORDERED: ACETAMINOPHEN ES 500 MG TABLET PO ONE (14:00)
[2016-06-28 14:11] LABS: BASOPHILS # (AUTO) 0.2 /CMM (0.0-0.2); EOSINOPHILS # (AUTO) 0.2 /CMM (0.0-0.7); MONOCYTES # (AUTO) 0.2 /CMM (0.1-1.30); WHITE BLOOD COUNT (AUTO) 7.7 K/uL (4.3-11.0)
[2016-06-28 14:29] LABS: BASOPHILS % (AUTO) 2.5 % (0.0-2.0); EOSINOPHILS % (AUTO) 2.4 % (0.0-6.0); HEMATOCRIT 31 % (39-51); HEMOGLOBIN 10.4 g/dL (13.5-17.5); LYMPHOCYTES # (AUTO) 1.1 /CMM (0.8-4.8); LYMPHOCYTES % (AUTO) 14.7 % (20.0-44.0); MEAN CORPUSCULAR HEMOGLOBIN 30 PG (26.0-33.0); MEAN CORPUSCULAR HGB CONC 33 g/dl (31.0-36.0); MEAN CORPUSCULAR VOLUME 90 fL (80-96); MONOCYTES % (AUTO) 2.7 % (2.0-12.0); NEUTROPHILS % (AUTO) 77.7 % (43.0-81.0); PLATELET COUNT (AUTO) 208 /CMM (150-450); RDW COEFFICIENT OF VARIATION 18.8 (11.5-15.0); RED BLOOD CELL COUNT(AUTO) 3.46 MIL/uL (4.5-6.0)
[2016-06-28 14:39] LABS: CALCIUM, SERUM 9.2 mg/dL (8.5-10.1); CREATININE 1.9 mg/dL (0.6-1.3); POTASSIUM 3.2 mmol/L (3.5-5.1)
[2016-06-28 14:46] LABS: INR 1.78 (0.87-1.13); PROTHROMBIN TIME 19.1 SECS (9.5-12.7)
--- NOTE | 2016-06-28 15:45 | NUR ---
IV removed. Catheter intact and site benign. Pressure and 4x4 applied to site. No bleeding noted. Patient discharged to home in stable condition. Written and verbal after care instructions given. Patient verbalizes understanding of instruction.
[2016-06-28] MEDS ORDERED: CEFTRIAXONE 1GM BAG (ER ONLY) 50 ML IV ONE (15:48)
[2016-06-28] MEDS ORDERED: IV SET PRIMARY PUMP SET 1 EA INFUS.SET MC ONE (15:48)
[2016-06-28 15:53] VITALS: BP 112/60
== END 2016-06-28 15:54 | disposition home or self-care (01) ==
LOC: ER 12:48
DX: S29.9XXA Unspecified injury of thorax, initial encounter (principal); E11.9 Type 2 diabetes mellitus without complications; I11.0 Hypertensive heart disease with heart failure; I50.9 Heart failure, unspecified; J44.9 Chronic obstructive pulmonary disease, unspecified; I48.91 Unspecified atrial fibrillation; F17.200 Nicotine dependence, unspecified, uncomplicated; Z88.0 Allergy status to penicillin; Z79.01 Long term (current) use of anticoagulants; Z87.891 Personal history of nicotine dependence; Z79.4 Long term (current) use of insulin; Z95.0 Presence of cardiac pacemaker; Z88.8 Allergy status to other drugs, medicaments and biological substances; V43.52XA Car driver injured in collision with other type car in traffic accident, initial encounter; Y93.89 Activity, other specified; Y92.89 Other specified places as the place of occurrence of the external cause; Y99.9 Unspecified external cause status
CPT/HCPCS: 36415; 71250; 72192; 74150; 80048; 85025; 85730; 99285; A4606; A6402; J0696; Z7610

== ENCOUNTER 2017-11-15 10:02 | Inpatient (IN) | payer OTHER ==
[~2017-11-15] VITALS: Ht 175.3 cm; Wt 95.7 kg
[~2017-11-15 10:02] MED LIST changes: +ACET-1951 PO; -ACET1TAB82 PO; +WARF-68 PO; -WARF2TAB6 PO
--- NOTE | 2017-11-15 10:20 | NUR ---
76 YO MALE BIB SELF. PATIENT IS ALERT AND ORIENTED, STATES HE FEELS MORE SOB THAN USUAL. PATIENT AMBULATED TO ER BED WITH STEADY GAIT, SKIN WARM AND DRY, RESP EVEN AND UNLABORED. AWAITING ORDERS FROM PROPVIDER, WILL CONTINUE TO MONITOR
[2017-11-15 10:47] LABS: BASOPHILS # (AUTO) 0.6 /CMM (0.0-0.2); BASOPHILS % (AUTO) 4.9 % (0.0-2.0); EOSINOPHILS % (AUTO) 0.7 % (0.0-6.0); HEMATOCRIT 38 % (39-51); HEMOGLOBIN 12.3 g/dL (13.5-17.5); LYMPHOCYTES # (AUTO) 1.1 /CMM (0.8-4.8); LYMPHOCYTES % (AUTO) 8.7 % (20.0-44.0); MEAN CORPUSCULAR HEMOGLOBIN 31 PG (26.0-33.0); MEAN CORPUSCULAR HGB CONC 33 g/dl (31.0-36.0); MEAN CORPUSCULAR VOLUME 96 fL (80-96); MONOCYTES # (AUTO) 0.6 /CMM (0.1-1.30); MONOCYTES % (AUTO) 4.5 % (2.0-12.0); NEUTROPHILS # (AUTO) 10.8 /CMM (1.8-8.9); NEUTROPHILS % (AUTO) 81.2 % (43.0-81.0); PLATELET COUNT (AUTO) 204 /CMM (150-450); RDW COEFFICIENT OF VARIATION 17.2 (11.5-15.0); RED BLOOD CELL COUNT(AUTO) 3.96 MIL/uL (4.5-6.0); WHITE BLOOD COUNT (AUTO) 13.1 K/uL (4.3-11.0)
[2017-11-15 10:49] LABS: APPEARANCE,URINE Turbid (CLEAR); BILIRUBIN,URINE Negative (NEGATIVE); BLOOD, URINE Moderate Ery/uL (NEGATIVE); COLOR,URINE Yellow (YELLOW); KETONES,URINE Negative (NEGATIVE); LEUKOCYTE ESTERASE ,URINE Large (NEGATIVE); NITRITE, URINE Negative (NEGATIVE); PH,URINE 5.5 (5.0-8.0); PROTEIN,URINE 100 mg/dl (NEGATIVE); UGLUCOSE Negative (NEGATIVE); UROBILINOGEN,URINE 0.2 EU/dL (0.2)
[2017-11-15 10:57] LABS: CALCIUM, SERUM 8.9 mg/dL (8.5-10.1); CARBON DIOXIDE 30 mmol/L (21-32); CHLORIDE 100 mmol/L (98-107); CREATININE 2.3 mg/dL (0.6-1.3); GLUCOSE 186 mg/dL (74-106); POTASSIUM 3.5 mmol/L (3.5-5.1); SODIUM SERUM 139 mmol/L (136-145); UREA NITROGEN, BLOOD 47 mg/dL (7-18)
[2017-11-15 11:00] LABS: BACTERIA,URINE Many /HPF (None Seen); INR 3.92 (0.85-1.15); SQUAMOUS EPITHELIAL CELL,UR Few /HPF (None Seen); WBC,URINE TOO NUMEROUS TO COUN /HPF (0-3)
[2017-11-15 11:05] LABS: TROPONIN I 0.078 ng/mL (0.00-0.056)
[2017-11-15 11:09] LABS: ALANINE AMINOTRANSFERASE 17 U/L (12-78); ALBUMIN 3.6 g/dL (3.4-5.0); ALKALINE PHOSPHATASE 63 U/L (46-116); ASPARTATE AMINOTRANSFERASE 13 U/L (15-37); B-TYPE NATRIURETIC PEPTIDE 5085 PG/ML (0-125); BILIRUBIN,DIRECT 0.6 mg/dL (0.0-0.2); TOTAL PROTEIN, SERUM 7.8 g/dL (6.4-8.2)
--- NOTE | 2017-11-15 11:21 | NUR ---
CALLED NURSING [facility] AND REQUESTED A TELE BED FOR THIS PT.
[2017-11-15] MEDS ORDERED: CEFTRIAXONE 1GM BAG (ER ONLY) 1 GM/50 ML PIGGYBACK IV ONE (11:30)
[2017-11-15] MEDS ORDERED: IV NS 0.9% 1,000 ML IV ONE (11:30)
--- NOTE | 2017-11-15 11:39 | NUR ---
PT IS ASSIGNED TO [facility]#: [id number], DX: SEPSIS AND UTI, AND ACCEPTING MD: DR KAY.
[2017-11-15 12:30] VITALS: BP 98/63
--- NOTE | 2017-11-15 12:30 | NUR ---
TILE FINISHERNETWORK DIAGNOSTIC SUPPORT SPECIALIST NOTE PT ARRIVED VIA GURNEY IN STABLE CONDITION ACCOMPANIED BY ER STAFF. PT ABLE TO AMBULATE TO BED. PT IS A/OX4, AFEBRILE. RESPIRATIONS ARE EVEN AND UNLABORED, NOT IN ANY ACUTE DISTRESS NOTED. PT DENIES ANY CHEST PAIN, N/V. C/O SOB UPON EXERTION. CURRENTLY ON O2 @2L/MIN VIA NC SATURATING AT 95%. PT HAS HX OF COPD. ABDOMEN IS SOFT AND NONDISTENDED. BOWEL SOUNDS ARE EQUAL UPON AUSCULTATION. DENIES ANY BLADDER DISCOMFORT. IV SITE TO LAC 20G, NO INFILTRATION NOTED. DRESSING KEPT CLEAN AND DRY. DISCOLORATION NOTED TO BLE AND BUE. PHOTOS TAKEN. DR. SHIPLEY MADE AWARE OF ADMISSION WITH ORDERS NOTED AND CARRIED OUT. SAFETY MEASURES ARE IN PLACE. INSTRUCTED PT TO USE CALL LIGHT WHEN ASSISTANCE IS NEEDED, CALL LIGHT IS LEFT WITHIN REACH. WILL CONTINUE TO MONITOR THROUGHOUT SHIFT.
--- NOTE | 2017-11-15 12:39 | NUR ---
TRANSPORTED PT TO TELE BED WITHOUT INCIDENT
[2017-11-15] MEDS ORDERED: IV NS 0.9% 1,000 ML IV PRN ×2 (13:30→17:30)
[2017-11-15] MEDS ORDERED: ENOXAPARIN SODIUM 40 MG/0.4 ML DISP.SYRIN SQ SCH (13:30)
[2017-11-15] MEDS ORDERED: MAG HYDROX/AL HYDROX/SIMETH 30 ML UDC PO PRN (13:30)
[2017-11-15] MEDS ORDERED: hydrALAZINE HCL 25 MG TABLET PO PRN (13:30)
[2017-11-15] MEDS ORDERED: ACETAMINOPHEN 325 MG TABLET PO PRN (13:30)
[2017-11-15] MEDS ORDERED: ONDANSETRON HCL/PF 4 MG/2 ML VIAL IVP PRN (13:30)
[2017-11-15] MEDS ORDERED: Z GUARD REMEDY 2 OZ OINT TP PRN (13:30)
[2017-11-15] MEDS ORDERED: MAGNESIUM HYDROXIDE 30 ML UDC PO PRN (13:30)
[2017-11-15 16:00] VITALS: BP 104/64
[2017-11-15] MEDS: METOPROLOL TARTRATE 25 MG TABLET PO SCH (17:00)
[2017-11-15] MEDS ORDERED: DEXTROSE 50%-WATER 50 ML DISP.SYRIN IV PRN (17:30)
[2017-11-15] MEDS: ALBUTEROL FS 2.5 MG/3 ML VIAL.NEB NEB SCH ×2 (17:30→19:15)
[2017-11-15] MEDS: CEFEPIME 1 GM in IV D5W 50 ML IV SCH (17:32)
[2017-11-15] MEDS: BLOOD SUGAR DIAGNOSTIC 1 EACH STRIP IN SCH ×2 (17:33→21:39)
[2017-11-15] MEDS ORDERED: FUROSEMIDE 20 MG/2 ML VIAL IV ONE (18:07)
[2017-11-15] MEDS: ASPIRIN 81 MG TAB.CHEW PO SCH (18:44)
--- NOTE | 2017-11-15 18:58 | NUR ---
RESIDENTIAL MONITOR CLOSING NOTES ALL DUE MEDS GIVEN, NEEDS MET AND RENDERED. PT REMAINS A/O X4, AFEBRILE. RESPIRATIONS ARE EVEN AND UNLABORED, NOT IN ANY ACUTE DISTRESS NOTED. DENIES ANY CHEST PAIN, SOB, N/V. CURRENTLY ON O2 @2L/MIN FOR COMFORT, SATURATING AT 95%. NEW PERIPHERAL IV TO LFA 22G, DRESSING KEPT CLEAN AND DRY. INFUSING CEFIPIME, NO ASE NOTED, TOLERATING WELL. SAFETY MEASURES ARE IN PLACE. REMINDED PT TO USE CALL LIGHT WHEN ASSISTANCE IS NEEDED, CALL LIGHT IS LEFT WITHIN REACH. WILL ENDORSE TO NEXT SHIFT FOR CONTINUITY OF CARE.
--- NOTE | 2017-11-15 19:41 | NUR ---
GEOPHYSICAL MANAGER OPENING NOTES PATIENT IN BED RESTING. ALERT AND ORIENTED X4. BREATHING EVEN AND UNLABORED. NO SOB NOTED. ON 2 LITERS OF OXYGEN VIA NC FOR COMFORT. NO COMPLAINTS OF PAIN OR DISCOMFORT. NO FACIAL GRIMACING. HEPLOCK ON LEFT FA #22 INTACT AND PATENT. SKIN DRY AND WARM TO TOUCH. AFEBRILE. ALL OTHER NEEDS ATTENDED TO. CALL LIGHT WITHIN REACH. BED ON LOWEST LOCKED POSITION. WILL CONTINUE TO MONITOR.
[2017-11-15 20:00] VITALS: BP 118/67
[2017-11-16] VITALS: BP 110/71
[2017-11-16 04:00] VITALS: BP 103/60
[2017-11-16] MEDS: FUROSEMIDE 20 MG/2 ML VIAL IV SCH ×2 (05:35→08:03)
--- NOTE | 2017-11-16 06:06 | NUR ---
PAPER FOLDING MACHINE OPERATOR NOTES LASIX HELD DUE TO BP 103/60.
[2017-11-16] MEDS: BLOOD SUGAR DIAGNOSTIC 1 EACH STRIP IN SCH ×4 (06:41→22:00)
--- NOTE | 2017-11-16 06:46 | NUR ---
METAL GRINDER CLOSING NOTES PATIENT IN BED RESTING. ALERT AND ORIENTED X4. NO ACUTE CHANGES THROUGHOUT SHIFT. BREATHING EVEN AND UNLABORED. NO SOB NOTED. ON 2 LITERS OF OXYGEN VIA NC. NO COMPLAINTS OF PAIN OR DISCOMFORT. NO FACIAL GRIMACING. HEPLOCK ON LEFT FA #22 INTACT AND PATENT. SKIN DRY AND WARM TO TOUCH. AFEBRILE. ALL OTHER NEEDS ATTENDED TO. CALL LIGHT WITHIN REACH. BED ON LOWEST LOCKED POSITION. WILL ENDORSE TO ONCOMING NURSE FOR CONTINUITY OF CARE.
--- NOTE | 2017-11-16 07:15 | NUR ---
METAPHYSICIAN INITIAL NOTES Report received at bedside. Patient received in bed, awake and comfortable. Alert and oriented x4, verbally responsive. Tele monitor shows: Sinus Rhythm; HR 74. Denies any type of pain at the moment. Not in any type of distress. On oxygen therapy at 2LPM via nasal cannula with no SOB/Labored breathing noted. Labs drawn. Ultrasound ordered for today. Safety measures in place. Will continue to monitor and assess patient. Addendum: 11/16/17 at 0824 by JUAN REZA RN CORRECTION around 0715, Tele monitor shows A-fib; HR 90-100
[2017-11-16] MEDS: ALBUTEROL FS 2.5 MG/3 ML VIAL.NEB NEB SCH ×3 (07:35→15:30)
[2017-11-16 07:41] LABS: BASOPHILS % (AUTO) 0.1 % (0.0-2.0); EOSINOPHILS % (AUTO) 3.1 % (0.0-6.0); HEMATOCRIT 35 % (39-51); HEMOGLOBIN 11.4 g/dL (13.5-17.5); LYMPHOCYTES # (AUTO) 0.5 /CMM (0.8-4.8); LYMPHOCYTES % (AUTO) 5.7 % (20.0-44.0); MEAN CORPUSCULAR HEMOGLOBIN 32 PG (26.0-33.0); MEAN CORPUSCULAR HGB CONC 33 g/dl (31.0-36.0); MEAN CORPUSCULAR VOLUME 97 fL (80-96); MONOCYTES # (AUTO) 0.4 /CMM (0.1-1.30); MONOCYTES % (AUTO) 4.5 % (2.0-12.0); NEUTROPHILS # (AUTO) 7.1 /CMM (1.8-8.9); NEUTROPHILS % (AUTO) 86.6 % (43.0-81.0); PLATELET COUNT (AUTO) 190 /CMM (150-450); RDW COEFFICIENT OF VARIATION 18.1 (11.5-15.0); RED BLOOD CELL COUNT(AUTO) 3.61 MIL/uL (4.5-6.0); WHITE BLOOD COUNT (AUTO) 8.2 K/uL (4.3-11.0)
[2017-11-16 07:57] LABS: CALCIUM, SERUM 8.6 mg/dL (8.5-10.1); CARBON DIOXIDE 27 mmol/L (21-32); CHLORIDE 100 mmol/L (98-107); CREATININE 1.8 mg/dL (0.6-1.3); GLUCOSE 155 mg/dL (74-106); MAGNESIUM 1.9 mg/dL (1.8-2.4); PHOSPHORUS 2.5 mg/dL (2.5-4.9); POTASSIUM 2.9 mmol/L (3.5-5.1); SODIUM SERUM 139 mmol/L (136-145); UREA NITROGEN, BLOOD 46 mg/dL (7-18)
[2017-11-16 07:59] LABS: INR 2.68 (0.87-1.13)
[2017-11-16 08:00] VITALS: BP 110/71
[2017-11-16 08:00] LABS: CHOLESTEROL 58 mg/dL (<200); HDL CHOLESTEROL 24 mg/dL (40-60); LDL 35 mg/dL (0-99); TRIGLYCERIDES 81 mg/dL (30-150)
[2017-11-16] MEDS: DILTIAZEM HCL CD 120 MG PO SCH (08:03)
[2017-11-16] MEDS: ASPIRIN 81 MG TAB.CHEW PO SCH (08:03)
[2017-11-16] MEDS: ATORVASTATIN 10 MG TABLET PO SCH (08:03)
[2017-11-16] MEDS: METOPROLOL TARTRATE 25 MG TABLET PO SCH ×2 (08:04→16:55)
--- NOTE | 2017-11-16 08:10 | NUR ---
REINSPECTOR NOTES Patient complaining of pain. H/O a-fib. HR in 130s. Rn Ostomy made aware. Per Rn Ostomy, ok to give routine BP meds. Will continue to monitor
--- NOTE | 2017-11-16 08:25 | NUR ---
MS RN - NEW ORDER NOTES Patient Accounting Representative at bedside. Per Patient Accounting Representative, continue on IVF, Antibiotics and Coumadin.
[2017-11-16] MEDS ORDERED: IV NS 0.9% 1,000 ML IV PRN (08:31)
[2017-11-16 09:08] LABS: THYROID STIMULATING HORMONE 1.038 uIU/mL (0.358-3.74)
[2017-11-16] MEDS: POTASSIUM CHLORIDE 20 MEQ TAB.PRT.SR PO SCH ×5 (09:18→12:42)
--- NOTE | 2017-11-16 09:48 | NUR ---
MS RN NOTES Ms. Nusrat Hodges FORENSIC MEDICAL EXAMINER at patient's bedside for consultation on Left lateral thoracic lump
[2017-11-16] MEDS: INSULIN REGULAR, HUMAN 100 UNIT/ML 3 ML VIAL SQ PRN ×3 (11:50→21:25)
[2017-11-16] MEDS ORDERED: METOPROLOL TARTRATE 25 MG TABLET PO PRN (13:00)
--- NOTE | 2017-11-16 13:41 | NUR ---
MS RN - CONSULTATION Dr. Najera at patient's bedside (at 1310)
[2017-11-16] MEDS: CEFEPIME 1 GM in IV D5W 50 ML IV SCH (13:44)
[2017-11-16 16:45] VITALS: BP 144/90
[2017-11-16] MEDS: WARFARIN SODIUM 2 MG TABLET PO SCH (17:26)
--- NOTE | 2017-11-16 19:16 | NUR ---
MS RN CLOSING NOTES Report given. Patient remained in bed, awake and comfortable. Alert and oriented x4, verbally responsive. Denies any type of pain at the moment. Not in any type of distress. On oxygen therapy @2LPM via nasal cannula with no SOB/Labored breathing noted. New order of Levalbuterol for breathing tx. Continue on antibiotic treatment per MD. All needs anticipated and met. Bed in locked and lowest position with call light within reach. Endorsed to oncoming shift nurse.
--- NOTE | 2017-11-16 19:30 | NUR ---
RA SLEEPING OF THIS TIME, WILL RECHECK PATIENT IN A FEW. CLOSELY WATCHED.
[2017-11-16] MEDS: LEVALBUTEROL HCL NEB 1.25 MG/0.5 ML VIAL.NEB NEB SCH (19:50)
[2017-11-16 20:00] VITALS: BP 96/66
--- NOTE | 2017-11-16 21:30 | NUR ---
MSRN BS WAS 272, 6UNITS OF REGULAR INSULIN ADMINISTERED. SNACKS PROVIDED. NO OTHER NEEDS MADE.
--- NOTE | 2017-11-17 00:15 | NUR ---
MSRN WAS SOB, FOUND BY RT WITH NO O2, STATED JUST CAME BACK FROM RESTROOM, SATURATION ON THE MID 80s. 02 OXYGEN USE EMPHASIZED , 4L FOR FEW MIN , BEDREST INSTRUCTED.
--- NOTE | 2017-11-17 00:48 | NUR ---
MSRN 02 SAT ON 93 TO 94%, TITRATE 02 AT 2L VIA NC. PROVIDED LONG TUBING AND URINAL. REMINDED TO CALL STAFF FOR ASSISTANCE. SAFETY PRECAUTIONS EMPHASIZED. APPEARS TO UNDERSTAND. CALL LIGHT WITHIN REACH.
--- NOTE | 2017-11-17 02:03 | NUR ---
MSRN ON BED EASILY AWAKENED, REMINDED O CALL STAFF FOR ANY ASSISTANCE OR DISCOMFORTS. SAFETY AWARENESS EMPHASIZED. STATED WILL CALL IF NEEDED.
[2017-11-17 06:31] LABS: EOSINOPHILS % (AUTO) 4.5 % (0.0-6.0); HEMATOCRIT 33 % (39-51); HEMOGLOBIN 10.8 g/dL (13.5-17.5); LYMPHOCYTES # (AUTO) 0.6 /CMM (0.8-4.8); MEAN CORPUSCULAR HEMOGLOBIN 32 PG (26.0-33.0); MEAN CORPUSCULAR HGB CONC 32 g/dl (31.0-36.0); MEAN CORPUSCULAR VOLUME 97 fL (80-96); MONOCYTES # (AUTO) 0.4 /CMM (0.1-1.30); NEUTROPHILS # (AUTO) 6.2 /CMM (1.8-8.9); NEUTROPHILS % (AUTO) 82.5 % (43.0-81.0); PLATELET COUNT (AUTO) 197 /CMM (150-450); RDW COEFFICIENT OF VARIATION 18.2 (11.5-15.0); RED BLOOD CELL COUNT(AUTO) 3.42 MIL/uL (4.5-6.0); WHITE BLOOD COUNT (AUTO) 7.5 K/uL (4.3-11.0)
--- NOTE | 2017-11-17 06:50 | NUR ---
MSRN NO COMPLAINTS MADE, O2 MAINTAINED. BS WAS 181. INCOMING RN TO COVER INSULIN. NEED 3 UNITS OF REGULAR INSULIN.
[2017-11-17 06:52] LABS: INR 1.54 (0.87-1.13)
[2017-11-17 07:00] LABS: TROPONIN I 0.047 ng/mL (0.00-0.056)
[2017-11-17 07:04] LABS: ALANINE AMINOTRANSFERASE 14 U/L (12-78); ALBUMIN 2.8 g/dL (3.4-5.0); ALKALINE PHOSPHATASE 53 U/L (46-116); ASPARTATE AMINOTRANSFERASE 13 U/L (15-37); BILIRUBIN,TOTAL 1.4 mg/dL (0.2-1.0); CALCIUM, SERUM 8.3 mg/dL (8.5-10.1); CARBON DIOXIDE 28 mmol/L (21-32); CHLORIDE 101 mmol/L (98-107); CREATININE 1.8 mg/dL (0.6-1.3); GLUCOSE 158 mg/dL (74-106); MAGNESIUM 2.3 mg/dL (1.8-2.4); PHOSPHORUS 2.6 mg/dL (2.5-4.9); POTASSIUM 3.2 mmol/L (3.5-5.1); SODIUM SERUM 138 mmol/L (136-145); TOTAL PROTEIN, SERUM 7.1 g/dL (6.4-8.2); UREA NITROGEN, BLOOD 54 mg/dL (7-18)
[2017-11-17] MEDS: BLOOD SUGAR DIAGNOSTIC 1 EACH STRIP IN SCH ×4 (07:14→21:09)
[2017-11-17] MEDS: INSULIN REGULAR, HUMAN 100 UNIT/ML 3 ML VIAL SQ PRN ×4 (07:15→21:41)
--- NOTE | 2017-11-17 07:25 | NUR ---
RN INITIAL NOTES Report received. Patient received in bed, awake and comfortable. Alert and oriented x4, verbally responsive. Denies any type of pain at the moment. Not in any type of distress. On oxygen therapy at 2LPM via nasal cannula with no SOB/Labored breathing noted. BS: 181 with 3 units of insulin coverage give. Safety measures in place. Will continue to monitor and assess patient
[2017-11-17] MEDS: LEVALBUTEROL HCL NEB 1.25 MG/0.5 ML VIAL.NEB NEB SCH ×2 (07:36→21:34)
[2017-11-17 08:00] VITALS: BP 103/78
[2017-11-17] MEDS: METOPROLOL TARTRATE 25 MG TABLET PO SCH ×2 (08:52→17:20)
[2017-11-17] MEDS: ATORVASTATIN 10 MG TABLET PO SCH (08:52)
[2017-11-17] MEDS: POTASSIUM CHLORIDE 20 MEQ TAB.PRT.SR PO SCH ×3 (08:54→11:53)
[2017-11-17] MEDS ORDERED: FUROSEMIDE 20 MG TABLET PO SCH (09:00)
[2017-11-17 09:19] LABS: IRON, SERUM 41 ug/dl (50-175); TOTAL IRON BINDING CAPACITY 171 ug/dl (250-450)
[2017-11-17] MEDS: DILTIAZEM HCL CD 120 MG PO SCH (09:59)
[2017-11-17 10:17] LABS: FERRITIN 353 ng/mL (8-388)
[2017-11-17] MEDS: CEFEPIME 1 GM in IV D5W 50 ML IV SCH (13:53)
[2017-11-17] MEDS ORDERED: LEVALBUTEROL HCL NEB 1.25 MG/0.5 ML VIAL.NEB NEB SCH (15:30)
--- NOTE | 2017-11-17 15:30 | NUR ---
MS RN - NEW ORDER NOTES MD made aware of patient's complaint of SOB and request for more frequent breathing treatment. New order of Levalbuterol Q6H Neb noted and carried out. RT made aware as well.
[2017-11-17 16:00] VITALS: BP 101/65
[2017-11-17] MEDS: WARFARIN SODIUM 2 MG TABLET PO SCH (17:19)
--- NOTE | 2017-11-17 19:30 | NUR ---
RN OPENING NOTES PATIENT AWAKE AND RESTING IN BED. NO COMPLAINTS OF PAIN, SOB OR DISTRESS AT THIS TIME. PATIENT ON 2L 02 VIA NASAL CANNULA. PT HAS A LEFT FOREARM #22 IV INTACT AND PATENT. SAFETY PRECAUTIONS IN PLACE, BED IN LOWEST LOCKED POSITION, X2 SIDE RAILS UP, AND CALL LIGHT WITHIN REACH. WILL CONTINUE TO MONITOR.
--- NOTE | 2017-11-17 19:39 | NUR ---
MS RN CLOSING NOTES Report given. Patient remained in bed, awake and comfortable. Alert and oriented x4, verbally responsive. Ambulatory with standby assist, steady gait. Denies any type of pain at the moment. Not in any type of distress. On oxygen therapy @2LPM via nasal cannula with no SOB/Labored breathing noted. New order of Levalbuterol for breathing tx Q6H. Continue on antibiotic treatment per MD. Monitor potassium level. Possible discharge tomorrow. All needs anticipated and met. Bed in locked and lowest position with call light within reach. Endorsed to oncoming shift nurse
[2017-11-17 20:00] VITALS: BP 116/71
[2017-11-17 20:12] VITALS: BP 116/71
--- NOTE | 2017-11-17 20:50 | NUR ---
rn ms notes received report from kaden for continuity of care. received patient in bed,awake alert and oriented x4, denies any pain or discomfort at this time, respirations even and unlabored with equal rise and fall of chest, on o2 2L via n/c 02 sat at 95%, iv site to left fa #22 g sl. no redness, no infiltration present. oriented to staff and call light, safety precautions in place, low bed and locked, bed alarm in place , patient made aware. toileting offered all needs attended at this time, will continue to monitor
--- NOTE | 2017-11-17 20:51 | NUR ---
RN NOTES REPORT GIVEN TO CLARE SHERMAN FOR CONTINUITY OF CARE.
[2017-11-18] MEDS: LEVALBUTEROL HCL NEB 1.25 MG/0.5 ML VIAL.NEB NEB SCH ×3 (00:50→13:16)
[2017-11-18 06:28] LABS: INR 1.44 (0.87-1.13)
[2017-11-18] MEDS: BLOOD SUGAR DIAGNOSTIC 1 EACH STRIP IN SCH ×2 (06:49→11:44)
[2017-11-18] MEDS: INSULIN REGULAR, HUMAN 100 UNIT/ML 3 ML VIAL SQ PRN ×2 (06:50→12:33)
--- NOTE | 2017-11-18 07:09 | NUR ---
rn ms closing notes patient in bed awake alert and oriented x 4, respirations even and unlabored with equal rise and fall of chest currently on o2 2 l via nc, no sob, denies pain at this time, iv site to left fa #22g hl, no respiratory distress, no changes throughout shift, safety precautions in place,call light kept within reach fluids and toileting offered , all needs attended will continue to monitor and endorse to next shift.
--- NOTE | 2017-11-18 07:10 | NUR ---
MSRN, PT RECEIVED A&0X3 WAITING FOR BREAKFAST. PTWITHO2 VIA NC AT 2LPM, DENIES SOB OR RESP DISTRESS. PT DENIES PAIN OR DISCOMFORT. PT WITH IVC AT R FA INTACT AND SALINE FLUSH PATENT. PT ENCOURAGED TO CALL PRIOR TO SITTING OOB OR AMBULATING, PT VERBALIZES UNDERSTANDING. PT BED IN LOWEST LOCKED POSITION WITH HANDRAILSX2 AND CALL MILES WITHIN REACH. PT BRIEFED ON TODAY'S POC AND IS WITHOUT CONCERN OR COMPLAINT AT THIS TIME.
--- NOTE | 2017-11-18 07:45 | NUR ---
RA. PT WITH MD VERA. D/C ORDER PENDING.
[2017-11-18 08:28] LABS: CALCIUM, SERUM 8.3 mg/dL (8.5-10.1); CARBON DIOXIDE 26 mmol/L (21-32); CHLORIDE 103 mmol/L (98-107); CREATININE 1.8 mg/dL (0.6-1.3); GLUCOSE 179 mg/dL (74-106); POTASSIUM 3.8 mmol/L (3.5-5.1); SODIUM SERUM 138 mmol/L (136-145); UREA NITROGEN, BLOOD 52 mg/dL (7-18)
[2017-11-18 08:33] LABS: ALANINE AMINOTRANSFERASE 15 U/L (12-78); ALBUMIN 2.7 g/dL (3.4-5.0); ALKALINE PHOSPHATASE 52 U/L (46-116); ASPARTATE AMINOTRANSFERASE 15 U/L (15-37); BILIRUBIN,TOTAL 1.2 mg/dL (0.2-1.0); MAGNESIUM 2.3 mg/dL (1.8-2.4)
[2017-11-18] MEDS: ATORVASTATIN 10 MG TABLET PO SCH (08:48)
[2017-11-18] MEDS: METOPROLOL TARTRATE 25 MG TABLET PO SCH (08:49)
[2017-11-18] MEDS: DILTIAZEM HCL CD 120 MG PO SCH (08:51)
[2017-11-18] MEDS ORDERED: LEVO500T75 PO (10:34)
[2017-11-18] MEDS ORDERED: K PHOS NEUTRAL 250 MG TABLET PO ONE (13:30)
[2017-11-18] MEDS: CEFEPIME 1 GM in IV D5W 50 ML IV SCH (13:48)
[2017-11-18 16:00] VITALS: BP 107/72
--- NOTE | 2017-11-18 16:00 | NUR ---
MSRN D/C NOTES. PT PREPARED FOR D/C PER MD. PT WITH O2 SUPPORT FOR TRANSPORT. PT DENIES PAIN. PT IVC REMOVED AND NAD AT SITE. PT WITH ALL BELONGINGS AND DOCUMENT SIGNED. PT AND BRIEFED ON SOH D/C PACKET, MEDICATIONS, SCRIPTS ETC AND ARE VERBALIZING UNDERSTANDING, RESOURCES AND INTENT TO FOLLOW POC. MULTIPLE COPIES OF MD REPORTS PROVIDED FOR SCHEDULED FOLLOW UP IN AM WITH BRAND COORDINATOR. WHEELCHAIR ESCORT WITH RN. PT LEFT WITHOUT CONCERN OR COMPLAINT AND GRATEFUL FOR CARE.
== END 2017-11-18 17:15 | disposition home or self-care (01) | DRG 871 ==
LOC: ER 10:10 → TELE 12:13 → MED 11-16 08:45
PROVIDERS: ADMIT Internal Medicine; ATTEND Internal Medicine
DX: A41.9 Sepsis, unspecified organism (principal); I50.33 Acute on chronic diastolic (congestive) heart failure; I21.A1 Myocardial infarction type 2; N17.0 Acute kidney failure with tubular necrosis; I13.0 Hypertensive heart and chronic kidney disease with heart failure and stage 1 through stage 4 chronic kidney disease, or unspecified chronic kidney disease; N39.0 Urinary tract infection, site not specified; E11.22 Type 2 diabetes mellitus with diabetic chronic kidney disease; N18.9 Chronic kidney disease, unspecified; I48.0 Paroxysmal atrial fibrillation; I27.20 Pulmonary hypertension, unspecified; I25.10 Atherosclerotic heart disease of native coronary artery without angina pectoris; Z86.73 Personal history of transient ischemic attack (TIA), and cerebral infarction without residual deficits; I48.2 Chronic atrial fibrillation; E78.5 Hyperlipidemia, unspecified; J44.9 Chronic obstructive pulmonary disease, unspecified; G89.29 Other chronic pain; M54.5 Low back pain; D50.9 Iron deficiency anemia, unspecified; Z87.891 Personal history of nicotine dependence; Z88.0 Allergy status to penicillin; B96.89 Other specified bacterial agents as the cause of diseases classified elsewhere; D72.829 Elevated white blood cell count, unspecified; Z79.01 Long term (current) use of anticoagulants; R74.0 Nonspecific elevation of levels of transaminase and lactic acid dehydrogenase [LDH]; I70.90 Unspecified atherosclerosis; Z95.0 Presence of cardiac pacemaker; E87.6 Hypokalemia; R16.2 Hepatomegaly with splenomegaly, not elsewhere classified; N28.1 Cyst of kidney, acquired; R65.20 Severe sepsis without septic shock; D35.00 Benign neoplasm of unspecified adrenal gland
CPT/HCPCS: 36415; 71045-TC; 76700-TC; 80048-TC; 80053-TC; 80061-TC; 80076-TC; 81000-TC; 82728-TC; 82962-TC; 83540-TC; 83605-TC; 83735-TC; 83880; 84100-TC; 84439-TC; 84443-TC; 84484-TC; 85025-TC; 85610-TC; 85730-TC; 87040-TC; 87081-TC; 87086-TC; 93307-TC; 94799-TC; A4606; J0692; J0696; J1815; J1940; J7030; J7060; Z7610

== ENCOUNTER 2017-12-24 17:04 | Emergency (ER) | payer OTHER ==
[~2017-12-24] VITALS: Ht 175.3 cm; Wt 91.2 kg
[~2017-12-24 17:04] MED LIST changes: +LEVO500T75 PO; -LEVO750T21 PO
--- NOTE | 2017-12-24 17:30 | NUR ---
PT BBI RA C/O BACK AND R HIP PAIN SINCE THURSDAY S/P BENDING OVER WHICH WORSENED SPOTANEOUSLY TODAY. UNABLE TO AMBULATE SECONDARY TO PAIN. NO OTHER COMPLAINTS. NO VISIBLE SIGNS OF TRAUMA. IN ER BED 06.
[2017-12-24] MEDS ORDERED: HYDROCODONE/APAP 5/325MG 1 EACH TABLET PO ONE (18:00)
[2017-12-24] MEDS ORDERED: IPRATROPIUM NEB FS 0.5 MG/2.5 ML AMPUL.NEB NEB ONE (18:00)
[2017-12-24] MEDS ORDERED: ALBUTEROL FS 2.5 MG/3 ML VIAL.NEB NEB ONE (18:00)
[2017-12-24] MEDS ORDERED: HYDROCODONE/APAP 5/325MG 1 EACH TABLET ONE (18:10)
[2017-12-24 18:18] LABS: BASOPHILS # (AUTO) 0.1 /CMM (0.0-0.2); BASOPHILS % (AUTO) 2.5 % (0.0-2.0); EOSINOPHILS % (AUTO) 4.2 % (0.0-6.0); HEMATOCRIT 28 % (39-51); LYMPHOCYTES # (AUTO) 0.7 /CMM (0.8-4.8); LYMPHOCYTES % (AUTO) 12.9 % (20.0-44.0); MEAN CORPUSCULAR HGB CONC 36 g/dl (31.0-36.0); MEAN CORPUSCULAR VOLUME 96 fL (80-96); MONOCYTES # (AUTO) 0.3 /CMM (0.1-1.30); MONOCYTES % (AUTO) 5.9 % (2.0-12.0); NEUTROPHILS # (AUTO) 3.8 /CMM (1.8-8.9); NEUTROPHILS % (AUTO) 74.5 % (43.0-81.0); PLATELET COUNT (AUTO) 186 /CMM (150-450); RED BLOOD CELL COUNT(AUTO) 2.93 MIL/uL (4.5-6.0); WHITE BLOOD COUNT (AUTO) 5.1 K/uL (4.3-11.0)
[2017-12-24] MEDS ORDERED: IPRATROPIUM NEB FS 0.5 MG/2.5 ML AMPUL.NEB ONE (18:19)
[2017-12-24] MEDS ORDERED: ALBUTEROL FS 2.5 MG/3 ML VIAL.NEB ONE (18:19)
[2017-12-24 18:28] LABS: INR 1.86 (0.85-1.15)
[2017-12-24 18:30] LABS: ALANINE AMINOTRANSFERASE 14 U/L (12-78); ALBUMIN 3.6 g/dL (3.4-5.0); ALKALINE PHOSPHATASE 69 U/L (46-116); ASPARTATE AMINOTRANSFERASE 17 U/L (15-37); BILIRUBIN,DIRECT 0.4 mg/dL (0.0-0.2); BILIRUBIN,TOTAL 1.4 mg/dL (0.2-1.0); CALCIUM, SERUM 10.3 mg/dL (8.5-10.1); CARBON DIOXIDE 30 mmol/L (21-32); CHLORIDE 107 mmol/L (98-107); CREATININE 1.9 mg/dL (0.6-1.3); GLUCOSE 78 mg/dL (74-106); POTASSIUM 4.3 mmol/L (3.5-5.1); SODIUM SERUM 143 mmol/L (136-145); TOTAL PROTEIN, SERUM 7.7 g/dL (6.4-8.2); UREA NITROGEN, BLOOD 33 mg/dL (7-18)
--- NOTE | 2017-12-24 19:05 | NUR ---
PT STOOD UP AT BEDSIDE WITH 2 ASSIST TO USE URINAL
[2017-12-24 19:25] LABS: APPEARANCE,URINE Cloudy (CLEAR); BILIRUBIN,URINE Negative (NEGATIVE); BLOOD, URINE Small Ery/uL (NEGATIVE); COLOR,URINE Yellow (YELLOW); KETONES,URINE Negative (NEGATIVE); LEUKOCYTE ESTERASE ,URINE Large (NEGATIVE); NITRITE, URINE Negative (NEGATIVE); PH,URINE 6.5 (5.0-8.0); PROTEIN,URINE 30 mg/dl (NEGATIVE); UGLUCOSE Negative (NEGATIVE)
[2017-12-24] MEDS ORDERED: FUROSEMIDE 40 MG/4 ML VIAL IV ONE (19:30)
[2017-12-24] MEDS ORDERED: FUROSEMIDE 40 MG/4 ML VIAL ONE (19:53)
[2017-12-24] MEDS ORDERED: MORPHINE SULFATE INJ 4 MG/ML DISP.SYRIN ONE ×2 (19:54→22:29)
[2017-12-24] MEDS: MORPHINE SULFATE INJ 2 MG/ML DISP.SYRIN IV ONE ×2 (20:03→20:07)
--- NOTE | 2017-12-24 20:15 | NUR ---
SPOKE [facility]ILDER [facility] WHO STATED THAT DR KAY IS THE ONLY REGAL PROVIDER AT THIS HOSPITAL AND THEY ARE NOT ABLE TO AUTHORIZE FOR A PATIENT TO BE ADMITTED TO AN ALTERNATIVE NON CONTRACTED PROVIDER AND WILL NOT AUTHORIZE FOR A TRANSFER WHERE THERE IS A CONTRACTED REGAL PROVIDER. SHE IS ASKING FOR FURTHER INFORMATION AND IS STATING SHE WILL ESCALATE THE CASE.
--- NOTE | 2017-12-24 20:16 | NUR ---
Pt continues to complain of back pain aggravated by movement. Morphine 6 mg IVBP administered to his Left FA. at bedside.
--- NOTE | 2017-12-24 20:29 | NUR ---
Patient refused IVP Lasix 80 mg and requested 40 mg instead. Explained the importance of taking medication as the MD has prescribed. Patient verbalized "I am not comfortable with it." IVP Lasix 40 mg administered to his Left FA G20. MD aware.
[2017-12-24 20:43] LABS: TROPONIN I 0.026 ng/mL (0.00-0.056)
[2017-12-24 21:00] LABS: BACTERIA,URINE Many /HPF (None Seen); SQUAMOUS EPITHELIAL CELL,UR Few /HPF (None Seen); WBC,URINE TOO NUMEROUS TO COUN /HPF (0-3)
--- NOTE | 2017-12-24 21:04 | NUR ---
Pt's pain level to his back is 6/10 at this time. No distress noted.
--- NOTE | 2017-12-24 21:17 | NUR ---
SPOKE WITH KRISTEN AGAIN WITH [facility]. PER KRISTEN CASE WAS ESCALATED TO DIRECTOR. THEY WILL NOT ADMIT TO A NON CONTRACTED HOSPITALIST SO SHE IS GOING TO REFER TO TRANSFER TEAM REGARDING DIVERTING PATIENT TO AN ALTERNATIVE HOSPITAL - POSSIBLY [facility].
[2017-12-24] MEDS ORDERED: MORPHINE SULFATE INJ 2 MG/ML DISP.SYRIN IV ONE (22:00)
--- NOTE | 2017-12-24 22:23 | NUR ---
Patient stood up with 1 person assist to void through urinal at bedside. Assisted him back to bed.
--- NOTE | 2017-12-25 00:23 | NUR ---
RECEIVED CALL FROM PAUL AND WAS TOLD THAT THIS PT HAS BEEN ACCEPTED AT [facility] UNDER DR ANGUIANO. PT IS ASSIGNED TO [facility] RM#: [id number]. NUMBER FOR REPORT IS [phone]. [facility] TRANSPORT WILL ARRIVE AT [phone]
[2017-12-25 00:34] VITALS: BP 119/76
--- NOTE | 2017-12-25 00:34 | NUR ---
TRANSPORT AT BEDSIDE REPORT GIVEN TO EMT.
--- NOTE | 2017-12-25 00:38 | NUR ---
Report given to CLARE Aguila at [facility]. Pt will go to Rm [id number].
== END 2017-12-25 00:42 | disposition short-term general hospital (02) ==
LOC: ER 17:09
DX: I11.0 Hypertensive heart disease with heart failure (principal); I50.9 Heart failure, unspecified; I48.91 Unspecified atrial fibrillation; M54.6 Pain in thoracic spine; N19 Unspecified kidney failure; N39.0 Urinary tract infection, site not specified; E11.9 Type 2 diabetes mellitus without complications; F17.200 Nicotine dependence, unspecified, uncomplicated; Z90.89 Acquired absence of other organs; Z98.890 Other specified postprocedural states; Z88.0 Allergy status to penicillin; Z88.5 Allergy status to narcotic agent; Z88.8 Allergy status to other drugs, medicaments and biological substances; Z79.01 Long term (current) use of anticoagulants; Z79.4 Long term (current) use of insulin
CPT/HCPCS: 36415; 71045; 73502; 80048; 80076; 81001; 83880; 84484; 85025; 85730; 87081; 87086; 93005; 94640; 96374; 96375; 96376; 99291; J1940; J2270 ×2; 81000-TC; A4606; Z7610

== ENCOUNTER 2018-03-03 22:51 | Emergency (ER) | payer OTHER ==
[~2018-03-03] VITALS: Ht 175.3 cm; Wt 89.4 kg
[2018-03-03 22:54] VITALS: BP 117/72
[2018-03-03 23:31] LABS: APPEARANCE,URINE CLOUDY (CLEAR); BILIRUBIN,URINE NEGATIVE (NEGATIVE); BLOOD, URINE 2+ Ery/uL (NEGATIVE); COLOR,URINE YELLOW (YELLOW); KETONES,URINE NEGATIVE (NEGATIVE); LEUKOCYTE ESTERASE ,URINE 2+ (NEGATIVE); NITRITE, URINE NEGATIVE (NEGATIVE); PROTEIN,URINE 2+ mg/dl (NEGATIVE); UGLUCOSE TRACE mg/dL (NEGATIVE); UROBILINOGEN,URINE 0.2 EU/dL (0.2)
[2018-03-03 23:46] LABS: BACTERIA,URINE Few /HPF (None Seen); SQUAMOUS EPITHELIAL CELL,UR Rare /HPF (None Seen); WBC,URINE TOO NUMEROUS TO COUN /HPF (0-3)
--- NOTE | 2018-03-04 01:03 | NUR ---
Note shantanu in ED - 03/04/18 at 0124 by MAXIMINO Called [facility] and spoke to their nursing supervisor salvage to transfer this pt for higher level of care. Faxed facesheet and was told she would call back.
== END 2018-03-04 01:55 | disposition home or self-care (01) ==
LOC: ER 22:56
DX: N41.0 Acute prostatitis (principal); N39.0 Urinary tract infection, site not specified; I11.0 Hypertensive heart disease with heart failure; I50.9 Heart failure, unspecified; I48.91 Unspecified atrial fibrillation; E11.9 Type 2 diabetes mellitus without complications; D64.9 Anemia, unspecified; F17.200 Nicotine dependence, unspecified, uncomplicated; Z90.89 Acquired absence of other organs; Z98.890 Other specified postprocedural states; Z88.0 Allergy status to penicillin; Z88.6 Allergy status to analgesic agent; Z88.8 Allergy status to other drugs, medicaments and biological substances; Z95.0 Presence of cardiac pacemaker; Z86.73 Personal history of transient ischemic attack (TIA), and cerebral infarction without residual deficits; Z79.01 Long term (current) use of anticoagulants; Z79.4 Long term (current) use of insulin; Z79.899 Other long term (current) drug therapy
CPT/HCPCS: 71046; 81000-TC; 87086-TC; A4606; Z7610

== ENCOUNTER 2018-04-19 12:24 | Inpatient (IN) | payer OTHER ==
[~2018-04-19] VITALS: Ht 175.3 cm; Wt 84.4 kg
[~2018-04-19 12:24] MED LIST changes: -ROSU10TA PO; +ROSU10TA2 PO
--- NOTE | 2018-04-19 12:30 | NUR ---
PT BIBRA C/O SHORTNESS OF BREATH SINCE THIS AM, SENT BY PMD DR FRANCOIS, PT IS AAOX4, NOT IN RESPIRATORY DISTRESS, V/S STABLE, HOOKED TO 02 VIA NC AT 2LPM, HOOKED TO MONITOR, KEPT RESTED AND COMFORTABLE.
--- NOTE | 2018-04-19 12:38 | NUR ---
SEEN AND EXAMINED BY DR. BENITO.
--- NOTE | 2018-04-19 12:42 | NUR ---
LABS DRAWNED AND SENT TO LAB.
--- NOTE | 2018-04-19 12:43 | NUR ---
RADIOLLOGY AT BEDSIDE FOR XRAY.
[2018-04-19 12:46] LABS: BASOPHILS # (AUTO) 0.1 /CMM (0.0-0.2); BASOPHILS % (AUTO) 1.7 % (0.0-2.0); EOSINOPHILS % (AUTO) 4.9 % (0.0-6.0); HEMATOCRIT 29 % (39-51); HEMOGLOBIN 9.1 g/dL (13.5-17.5); LYMPHOCYTES # (AUTO) 0.7 /CMM (0.8-4.8); LYMPHOCYTES % (AUTO) 11.4 % (20.0-44.0); MEAN CORPUSCULAR HGB CONC 31 g/dl (31.0-36.0); MEAN CORPUSCULAR VOLUME 103 fL (80-96); MONOCYTES # (AUTO) 0.4 /CMM (0.1-1.30); MONOCYTES % (AUTO) 6.2 % (2.0-12.0); NEUTROPHILS # (AUTO) 4.5 /CMM (1.8-8.9); NEUTROPHILS % (AUTO) 75.8 % (43.0-81.0); PLATELET COUNT (AUTO) 270 /CMM (150-450); RED BLOOD CELL COUNT(AUTO) 2.82 MIL/uL (4.5-6.0)
[2018-04-19] MEDS ORDERED: NITROGLYCERIN PACKET 1 GM PACKET ONE (12:47)
[2018-04-19] MEDS ORDERED: FUROSEMIDE 40 MG/4 ML VIAL ONE (12:47)
[2018-04-19 12:55] LABS: CALCIUM, SERUM 9.2 mg/dL (8.5-10.1); CARBON DIOXIDE 26 mmol/L (21-32); CHLORIDE 106 mmol/L (98-107); CREATININE 2.5 mg/dL (0.6-1.3); GLUCOSE 258 mg/dL (74-106); POTASSIUM 4.1 mmol/L (3.5-5.1); SODIUM SERUM 142 mmol/L (136-145); UREA NITROGEN, BLOOD 61 mg/dL (7-18)
[2018-04-19] MEDS ORDERED: NITROGLYCERIN PACKET 1 GM PACKET TD ONE (13:00)
[2018-04-19] MEDS ORDERED: FUROSEMIDE 40 MG/4 ML VIAL IV ONE (13:00)
[2018-04-19 13:11] LABS: ALANINE AMINOTRANSFERASE 24 U/L (12-78); ALBUMIN 3.6 g/dL (3.4-5.0); ALKALINE PHOSPHATASE 67 U/L (46-116); ASPARTATE AMINOTRANSFERASE 18 U/L (15-37); B-TYPE NATRIURETIC PEPTIDE 5123 PG/ML (0-125); BILIRUBIN,DIRECT 0.3 mg/dL (0.0-0.2); TOTAL PROTEIN, SERUM 7.5 g/dL (6.4-8.2)
[2018-04-19] MEDS ORDERED: FERR325T23 PO (13:16)
[2018-04-19] MEDS ORDERED: DILT120C11 PO (13:16)
[2018-04-19] MEDS ORDERED: POTA10TA15 PO (13:16)
[2018-04-19] MEDS ORDERED: CALC0.253 PO (13:16)
[2018-04-19] MEDS ORDERED: TIOT4MIS5 IH (13:16)
[2018-04-19] MEDS ORDERED: ALBU8.5H8 IH (13:16)
[2018-04-19] MEDS ORDERED: FLUT1DIS3 IH (13:16)
[2018-04-19] MEDS ORDERED: WARF3TAB59 PO (13:17)
--- NOTE | 2018-04-19 13:34 | NUR ---
CALLED FOR TELE BED
--- NOTE | 2018-04-19 13:39 | NUR ---
GOT BED 103
--- NOTE | 2018-04-19 13:48 | NUR ---
PRATEEK GÓMEZ SPOKE WITH AGNES LUCIA MGR [phone], OK TO ADMIT TO [facility]
[2018-04-19] MEDS ORDERED: CEPH500C2 PO (14:00)
--- NOTE | 2018-04-19 14:16 | NUR ---
REPORT GIVEN TO CLARE WOODARD FOR YOUNG.
--- NOTE | 2018-04-19 14:30 | NUR ---
ASBESTOS REMOVER NOTES RECEIVED REPORT FROM CLARE DAMIAN. PATIENT CAME IN VIA GURNEY A&Ox4. ON 2L NC. NO SOB NO DISTRESS. AMBULATORY. HAS IV ON THE RIGHT AC #18. INTACT PATENT AND SALINE FLUSHED. SKIN INTACT. EDEMA ON BOTH LEGS. PATIENT IS AMBULATORY AND WENT TO THE BATHROOM TO URINATE AND HAD A BOWEL MOVEMENT. WILL CONTINUE TO MONITOR CLOSELY.
[2018-04-19] MEDS ORDERED: MAG HYDROX/AL HYDROX/SIMETH 30 ML UDC PO PRN (15:30)
[2018-04-19] MEDS ORDERED: ONDANSETRON HCL/PF 4 MG/2 ML VIAL IVP PRN (15:30)
[2018-04-19] MEDS ORDERED: ZOLPIDEM TARTRATE 5 MG TABLET PO PRN (15:30)
[2018-04-19] MEDS ORDERED: Z GUARD REMEDY 2 OZ OINT TP PRN (15:30)
[2018-04-19] MEDS ORDERED: MAGNESIUM HYDROXIDE 30 ML UDC PO PRN (15:30)
[2018-04-19] MEDS ORDERED: ACETAMINOPHEN 325 MG TABLET PO PRN (15:30)
[2018-04-19] MEDS ORDERED: HYDROCODONE/APAP 5/325MG 1 EACH TABLET PO PRN (15:30)
[2018-04-19 16:00] VITALS: BP 106/58
[2018-04-19] MEDS: FUROSEMIDE 40 MG/4 ML VIAL IV SCH (16:29)
[2018-04-19] MEDS: METOPROLOL TARTRATE 50 MG TABLET PO SCH (16:29)
[2018-04-19 17:00] VITALS: BP 106/58
[2018-04-19] MEDS: methylPREDNISolone SOD SUCC 125 MG/2ML VIAL IV SCH ×2 (17:56→23:03)
[2018-04-19] MEDS: BLOOD SUGAR DIAGNOSTIC 1 EACH STRIP IN SCH ×2 (18:23→22:23)
[2018-04-19] MEDS: INSULIN REGULAR, HUMAN 100 UNIT/ML 3 ML VIAL SQ PRN ×2 (18:24→22:35)
[2018-04-19] MEDS ORDERED: DEXTROSE 50%-WATER 50 ML DISP.SYRIN IV PRN (18:30)
[2018-04-19] MEDS ORDERED: WARFARIN SODIUM 2 MG TABLET PO SCH (19:04)
[2018-04-19 20:00] VITALS: BP 120/71
[2018-04-19] MEDS ORDERED: INSULIN GLARGINE, 100 UNIT/ML CARTRIDGE SQ SCH (22:00)
[2018-04-19] MEDS: ATORVASTATIN 10 MG TABLET PO SCH (22:22)
[2018-04-19] MEDS: CHOLECALCIFEROL 1,000 UNIT TABLET (VIT D3) PO SCH (22:22)
--- NOTE | 2018-04-19 22:38 | NUR ---
RN NOTE CLARIFIED WITH NEAL CRYSTAL THAT PATIENT HAS LANTUS GLARGINE 70 UNITS SCHEDULED AT 2200, PER NEAL CRYSTAL CHANGE ORDER OF LANTUS TO 20 UNITS AT NIGHT, ORDER IS CARRIED OUT
[2018-04-19] MEDS: INSULIN GLARGINE, 100 UNIT/ML CARTRIDGE SQ SCH (22:53)
[2018-04-20] VITALS: BP 119/71
[2018-04-20 04:00] VITALS: BP 111/65
[2018-04-20] MEDS: methylPREDNISolone SOD SUCC 125 MG/2ML VIAL IV SCH ×4 (05:24→23:26)
--- NOTE | 2018-04-20 06:50 | NUR ---
RN NOTE PATIENT RESTED WELL AT NIGHT, HR 94 A-FIB ON THE MONITOR , NO CHEST PAIN NOTED, ALL SAFETY MEASURES TAKEN, STABLE, WILL PROVIDE BEDSIDE REPORT TO AM NURSE
[2018-04-20 06:54] LABS: BASOPHILS % (AUTO) 0.4 % (0.0-2.0); EOSINOPHILS % (AUTO) 0.1 % (0.0-6.0); HEMATOCRIT 29 % (39-51); LYMPHOCYTES # (AUTO) 0.2 /CMM (0.8-4.8); LYMPHOCYTES % (AUTO) 5.5 % (20.0-44.0); MEAN CORPUSCULAR HGB CONC 31 g/dl (31.0-36.0); MEAN CORPUSCULAR VOLUME 103 fL (80-96); MONOCYTES % (AUTO) 0.6 % (2.0-12.0); NEUTROPHILS # (AUTO) 3.9 /CMM (1.8-8.9); NEUTROPHILS % (AUTO) 93.4 % (43.0-81.0); PLATELET COUNT (AUTO) 162 /CMM (150-450); RED BLOOD CELL COUNT(AUTO) 2.78 MIL/uL (4.5-6.0); WHITE BLOOD COUNT (AUTO) 4.2 K/uL (4.3-11.0)
[2018-04-20 07:14] LABS: B-TYPE NATRIURETIC PEPTIDE 6769 PG/ML (0-125); CARBON DIOXIDE 26 mmol/L (21-32); CHLORIDE 100 mmol/L (98-107); CREATININE 2.5 mg/dL (0.6-1.3); MAGNESIUM 2.3 mg/dL (1.8-2.4); PHOSPHORUS 5.5 mg/dL (2.5-4.9); POTASSIUM 3.9 mmol/L (3.5-5.1); SODIUM SERUM 138 mmol/L (136-145); UREA NITROGEN, BLOOD 65 mg/dL (7-18)
[2018-04-20 07:16] LABS: GLUCOSE 353 mg/dL (74-106)
[2018-04-20 07:17] LABS: CHOLESTEROL 64 mg/dL (<200); HDL CHOLESTEROL 30 mg/dL (40-60); LDL 28 mg/dL (0-99); THYROID STIMULATING HORMONE 0.688 uIU/mL (0.358-3.74); TRIGLYCERIDES 47 mg/dL (30-150)
--- NOTE | 2018-04-20 07:27 | NUR ---
RN NOTE RECEIVED PHONE CALL FROM LAB, BLOOD GLUCOSE LEVEL 353, NOTIFIED NEAL CRYSTAL, AWAITING FOR CALL BACK, ENDORSE TO AM NURSE TAJ TO FOLLOW UP
--- NOTE | 2018-04-20 07:30 | NUR ---
RN NOTES RECEIVED IN BED ON HIGH PAIGE'S, A/OX4, ABLE TO MAKE NEEDS KNOWN, ON NASAL CANNULA: OXYGEN AT 2 LPM, SATURATING AT 98%, A FIB- V PACING ON THE MONITOR, HR AT 114 AT THIS TIME. NO COMPLAINTS OF CHEST PAIN OR ANY KIND OF PAIN, IV LINE ON THE RAC G18: IN PLACE AND INTACT, FLUSHES WELL. SAFETY MEASURES CHECKED AND OBSERVED, HOB SIDE RAIL UP X1, ATTEMPTED TO RAISE BUT PATIENT "IT WOULD BE EASIER FOR ME TO GET UP AND GO TO THE RESTROOM WITH THAT DOWN BECAUSE I CANNOT ALWAYS WAIT FOR YOU GUYS". PATIENT ORIENTED TO THE UNIT AND USE OF CALL LIGHT, CALL LIGHT PLACED WITHIN EASY REACH, WILL CONTINUE TO MONITOR PATIENT CLOSELY. Addendum: 04/20/18 at 0946 by TAJ CISNEROS RN IV LINE: DENISE
[2018-04-20 08:00] VITALS: BP 134/70
[2018-04-20] MEDS: BLOOD SUGAR DIAGNOSTIC 1 EACH STRIP IN SCH ×4 (08:09→21:57)
[2018-04-20] MEDS: FUROSEMIDE 40 MG/4 ML VIAL IV SCH ×2 (08:09→17:06)
[2018-04-20] MEDS: DILTIAZEM HCL CD 120 MG PO SCH (08:10)
[2018-04-20] MEDS: FERROUS SULFATE (325 MG) 325 MG/TAB TABLET PO SCH (08:10)
[2018-04-20] MEDS: CALCITRIOL 0.25 MCG CAPSULE PO SCH (08:10)
[2018-04-20] MEDS: METOPROLOL TARTRATE 50 MG TABLET PO SCH ×2 (08:11→17:07)
[2018-04-20] MEDS: INSULIN REGULAR, HUMAN 100 UNIT/ML 3 ML VIAL SQ PRN ×3 (08:14→17:11)
--- NOTE | 2018-04-20 11:00 | NUR ---
RN NOTES SEEN AND EXAMINED BY DR. REAGAN. WITH ORDERS MADE. ORDERS NOTED AND CARRIED OUT
[2018-04-20 12:00] VITALS: BP 98/59
--- NOTE | 2018-04-20 14:00 | NUR ---
RN NOTES PACE MAKER HAS BEEN CHECKED TODAY, "BATTERY IS STILL OK. PACE MAKER WORKING FINE"
--- NOTE | 2018-04-20 14:24 | NUR ---
PATIENT REFUSED SIDERAIL UP AND REFUSED BED ALARM,EXPLAINED THE FALL RISK AND AGREED HE WILL USE CALL LIGHT IF HE WANTS TO AMBULATE/OR BATHROOM.WILL CONTINUE TO OBSERVED FALL RISK PRECAUTION.
[2018-04-20 16:00] VITALS: BP 108/61
[2018-04-20] MEDS ORDERED: WARFARIN SODIUM 1 MG TABLET PO SCH (17:00)
[2018-04-20] MEDS: WARFARIN SODIUM 5 MG TABLET PO SCH (17:09)
--- NOTE | 2018-04-20 19:36 | NUR ---
RN NOTES ENDORSED PATIENT FOR CONTINUITY OF CARE. NO ACUTE CHANGES WITHIN THE SHIFT. NOT ON ANY FORM OF DISTRESS. ALL NURSING NEEDS ATTENDED AND MET. SAFETY MEASURES IN PLACE AT ALL TIMES. RELAYED CONCERN ABOUT CEPHALEXIN AND BLOOD ON THE STOOL (PATIENT WITH HEMORRHOIDS) TO INCOMING NURSE
[2018-04-20 20:00] VITALS: BP 101/54
[2018-04-20] MEDS: CHOLECALCIFEROL 1,000 UNIT TABLET (VIT D3) PO SCH (21:55)
[2018-04-20] MEDS: ATORVASTATIN 10 MG TABLET PO SCH (21:55)
--- NOTE | 2018-04-20 22:00 | NUR ---
MS RN NOTES PT COMPLAINING OF RIGHT LEG PAIN. SENIOR DATA ARCHITECT ORDERED RIGHT ISADORA ULTRASOUND, BMP AND MORPHINE PO FOR PAIN. WILL MONITOR PT CLOSELY.
[2018-04-20] MEDS: *INSULIN REGULAR(HUMULIN R)HUM 100 UNIT/ML VIAL SQ PRN (22:01)
[2018-04-20 22:14] LABS: CALCIUM, SERUM 8.7 mg/dL (8.5-10.1); CARBON DIOXIDE 27 mmol/L (21-32); CHLORIDE 97 mmol/L (98-107); CREATININE 2.5 mg/dL (0.6-1.3); GLUCOSE 207 mg/dL (74-106); POTASSIUM 3.5 mmol/L (3.5-5.1); SODIUM SERUM 133 mmol/L (136-145); UREA NITROGEN, BLOOD 72 mg/dL (7-18)
[2018-04-20] MEDS ORDERED: INSULIN GLARGINE, 100 UNIT/ML CARTRIDGE SQ ONE (22:16)
[2018-04-20] MEDS: INSULIN GLARGINE, 100 UNIT/ML CARTRIDGE SQ SCH (22:33)
--- NOTE | 2018-04-20 22:47 | NUR ---
MS RN NOTES RECEIVED PT ON BED. A/O X 4. ON NASAL CANNULA 2LPM SATURATING WELL, NO RESPIRATORY DISTRESS NOTED. IV ACCESS ON RAC G18 SL. PT REFUSING BED ALARM PER PT HE CAN STAND UP AND GO TO THE BATHROOM ON HIS OWN. SIDE RAILS UP X3. WILL MONITOR PT CLOSELY.
[2018-04-20] MEDS ORDERED: MORPHINE SULFATE IR 15 MG TABLET PO PRN (23:30)
[2018-04-21 04:00] VITALS: BP_SYST 103; BP_DIAS 52; BP_DIAS 55
[2018-04-21] MEDS: methylPREDNISolone SOD SUCC 125 MG/2ML VIAL IV SCH ×3 (05:05→17:52)
--- NOTE | 2018-04-21 06:34 | NUR ---
MS RN NOTES NO ACUTE CHANGES NOTED DURING THE SHIFT. PROVIDED COMFORT AND SAFETY. WILL ENDORSE TO THE AM NURSE FOR CONTINUITY OF CARE.
[2018-04-21 07:19] LABS: BASOPHILS % (AUTO) 0.2 % (0.0-2.0); HEMATOCRIT 26 % (39-51); HEMOGLOBIN 8.3 g/dL (13.5-17.5); LYMPHOCYTES # (AUTO) 0.3 /CMM (0.8-4.8); LYMPHOCYTES % (AUTO) 5.4 % (20.0-44.0); MEAN CORPUSCULAR HGB CONC 32 g/dl (31.0-36.0); MEAN CORPUSCULAR VOLUME 101 fL (80-96); MONOCYTES # (AUTO) 0.1 /CMM (0.1-1.30); MONOCYTES % (AUTO) 1.3 % (2.0-12.0); NEUTROPHILS # (AUTO) 5.3 /CMM (1.8-8.9); NEUTROPHILS % (AUTO) 93.1 % (43.0-81.0); PLATELET COUNT (AUTO) 166 /CMM (150-450); RED BLOOD CELL COUNT(AUTO) 2.55 MIL/uL (4.5-6.0); WHITE BLOOD COUNT (AUTO) 5.7 K/uL (4.3-11.0)
[2018-04-21 07:30] LABS: CALCIUM, SERUM 8.7 mg/dL (8.5-10.1); CARBON DIOXIDE 27 mmol/L (21-32); CHLORIDE 97 mmol/L (98-107); CREATININE 2.2 mg/dL (0.6-1.3); GLUCOSE 187 mg/dL (74-106); POTASSIUM 3.4 mmol/L (3.5-5.1); SODIUM SERUM 132 mmol/L (136-145); UREA NITROGEN, BLOOD 70 mg/dL (7-18)
--- NOTE | 2018-04-21 07:43 | NUR ---
MS RN OPENING NOTE RECEIVED PATIENT IN BED. ALERT ORIENTED X4. ON 2L O2 VIA NC, TOLERATING WELL. IN NO APPARENT DISTRESS OR DISCOMFORT AT THIS TIME. RESPIRATIONS EVEN AND UNLABORED. DENIES PAIN AND SOB. PATIENT IS INDEPENDENT WITH BED MOBILITY, ABLE TO COMMUNICATE NEEDS/ RIGHT AC 18G IVC SL, PATENT AND INTACT. PATIENT KEPT CLEAN AND COMFORTABLE. ALL NEEDS ATTENDED, SAFETY MEASURES IN PLACE, BED IN LOW LOCKED POSITION, SIDE RAILS UP X2, CALL LIGHT WITHIN EASY REACH. WILL CONTINUE TO MONITOR.
[2018-04-21 08:00] VITALS: BP 115/65
[2018-04-21] MEDS: BLOOD SUGAR DIAGNOSTIC 1 EACH STRIP IN SCH ×4 (08:28→21:40)
[2018-04-21] MEDS: FERROUS SULFATE (325 MG) 325 MG/TAB TABLET PO SCH (08:28)
[2018-04-21] MEDS: DILTIAZEM HCL CD 120 MG PO SCH (08:29)
[2018-04-21] MEDS: METOPROLOL TARTRATE 50 MG TABLET PO SCH ×2 (08:29→17:52)
[2018-04-21] MEDS: CALCITRIOL 0.25 MCG CAPSULE PO SCH (08:29)
[2018-04-21] MEDS: *INSULIN REGULAR(HUMULIN R)HUM 100 UNIT/ML VIAL SQ PRN ×2 (08:36→22:00)
[2018-04-21] MEDS: FUROSEMIDE 40 MG/4 ML VIAL IV SCH (08:36)
--- NOTE | 2018-04-21 08:37 | NUR ---
PATIENT REFUSED LASIX. DR REAGAN AT BEDSIDE. HOLD DOSE PER MD ORDER
[2018-04-21] MEDS: POTASSIUM CHLORIDE 20 MEQ TAB.PRT.SR PO SCH ×3 (09:03→11:57)
[2018-04-21] MEDS ORDERED: POTASSIUM CHLORIDE 20 MEQ TAB.PRT.SR PO SCH (09:30)
--- NOTE | 2018-04-21 11:00 | NUR ---
PER / MERARY'S ORDER CHECKED PATIENT'S O2 SATURATION LEVEL IN ROOM AIR. PATIENT WAS SATURATING AT 87-89% ON ROOM AIR, PUT HIM BACK ON 2L O2 VIA NC. REPORTED TO DR. DEWEY AT BEDSIDE. PER DR DEWEY'S ORDER DECREASE O2 FLOW TO 1L AND MONITOR AT THIS TIME. NOTED AND CARRIED OUT.
[2018-04-21] MEDS: INSULIN REGULAR, HUMAN 100 UNIT/ML 3 ML VIAL SQ PRN ×2 (12:13→17:51)
--- NOTE | 2018-04-21 12:48 | NUR ---
PER DR OROSCO, ORDER TO COLLECT URINE FOR URINALYSIS AND URINE CULTURE. NOTED AND CARRIED OUT
[2018-04-21 13:43] LABS: APPEARANCE,URINE SL CLOUDY (CLEAR); BILIRUBIN,URINE NEGATIVE (NEGATIVE); BLOOD, URINE TRACE Ery/uL (NEGATIVE); COLOR,URINE YELLOW (YELLOW); KETONES,URINE NEGATIVE (NEGATIVE); LEUKOCYTE ESTERASE ,URINE 1+ (NEGATIVE); NITRITE, URINE NEGATIVE (NEGATIVE); PROTEIN,URINE 1+ mg/dl (NEGATIVE); UGLUCOSE TRACE mg/dL (NEGATIVE); UROBILINOGEN,URINE 0.2 EU/dL (0.2)
[2018-04-21 13:50] LABS: BACTERIA,URINE Few /HPF (None Seen); SQUAMOUS EPITHELIAL CELL,UR Few /HPF (None Seen); WBC,URINE 81-100 /HPF (0-3)
[2018-04-21 16:00] VITALS: BP 111/59
--- NOTE | 2018-04-21 16:29 | NUR ---
PATIENT REPORTED PAIN IN IV SITE, FLASHED THE IV, NOTED LEAKING. REMOVED THE OLD IV FROM LIGHT AC. PLACED NEW IV SITE ON LEFT FA 22G. PATENT AND INTACT.
[2018-04-21] MEDS: WARFARIN SODIUM 5 MG TABLET PO SCH (18:00)
--- NOTE | 2018-04-21 18:24 | NUR ---
MS RN CLOSING NOTE PATIENT IN BED. ALERT ORIENTED X4. ON 1L O2 VIA NC, TOLERATING WELL. IN NO APPARENT DISTRESS OR DISCOMFORT AT THIS TIME. RESPIRATIONS EVEN AND UNLABORED. DENIES PAIN AND SOB. PATIENT IS INDEPENDENT WITH BED MOBILITY, ABLE TO COMMUNICATE NEEDS/ LEFT FOREARM 22G IVC SL, PATENT AND INTACT. PATIENT KEPT CLEAN AND COMFORTABLE. ALL NEEDS ATTENDED, ORDERS RENDERED. SAFETY MEASURES IN PLACE, BED IN LOW LOCKED POSITION, SIDE RAILS UP X2, CALL LIGHT WITHIN EASY REACH. WILL ENDORSE TO PM NURSE FOR YOUNG.
--- NOTE | 2018-04-21 19:00 | NUR ---
recieving notes alert and orientated smiling and wanting to tell me jokes. denies pain no noted sob yalking w/o becoming sob. o2 on nc at 2 liters
--- NOTE | 2018-04-21 19:00 | NUR ---
RECIEVED ALERT AND ORIENTATED TELLING JOKES AND SMILING NO SOB WHEN SPEAKING AND TALKS IN SENTENCES
[2018-04-21 19:40] VITALS: BP 115/62
[2018-04-21 20:00] VITALS: BP 115/62
[2018-04-21] MEDS: CHOLECALCIFEROL 1,000 UNIT TABLET (VIT D3) PO SCH (21:41)
[2018-04-21] MEDS: ATORVASTATIN 10 MG TABLET PO SCH (21:41)
[2018-04-21] MEDS: INSULIN GLARGINE, 100 UNIT/ML CARTRIDGE SQ SCH (21:44)
--- NOTE | 2018-04-21 22:28 | NUR ---
TEXT MD KEVIN CANO AND MADE AWARE THAT BLOOD SUGAR 441 RECHECKED 435 AND WHAT I DID GAVE HIM INSULIN HE CAME TO THE FLOOR AND WAS TOLD NO NEW ORDERS.
[2018-04-21] MEDS: IPRATROPIUM NEB FS 0.5 MG/2.5 ML AMPUL.NEB NEB PRN (23:27)
[2018-04-21] MEDS: ALBUTEROL FS 2.5 MG/0.5 ML VIAL.NEB NEB PRN (23:27)
[2018-04-22] VITALS: BP 98/43
[2018-04-22 05:04] VITALS: BP 115/62
--- NOTE | 2018-04-22 05:35 | NUR ---
ENDING NOTES: ALERT AND ORIENTATED. GOOD EYE CONTACT. SPEECH CLEAR ENJOYS CONVERSATION AND ENJOYS TELLING LOKES. BLOOD SUGAR RUNNNG HIGH AT MN BS 435 MD HUDSON HERE AND MADE AWARE COVERAGE ORDERED FOR NIGHT HS SHIGT. HE REQUITED A SNACK JUICE !\ TOLD HIIM WE CANNOT GIVE HIM JUICE D/T HI BLOOD SUGAR, BEING NO FAULT OF HIS THAT HE IS ON SOLUMEDROL. AMBULATED WITH ONE NURSE ASSIST TO THE BATHROOM
[2018-04-22] MEDS: methylPREDNISolone SOD SUCC 125 MG/2ML VIAL IV SCH ×4 (05:51→21:08)
[2018-04-22] MEDS: BLOOD SUGAR DIAGNOSTIC 1 EACH STRIP IN SCH ×5 (05:58→21:08)
--- NOTE | 2018-04-22 07:00 | NUR ---
RN INITIAL NOTES RECEIVED PT ALERT AND ORIENTATED. IN STABLE CONDITION. ALL SAFETY PRECAUTION IN PLACE. WILL CONT TO MONITOR.
[2018-04-22 07:30] LABS: ALANINE AMINOTRANSFERASE 23 U/L (12-78); ALBUMIN 3.4 g/dL (3.4-5.0); ALKALINE PHOSPHATASE 46 U/L (46-116); ASPARTATE AMINOTRANSFERASE 11 U/L (15-37); BILIRUBIN,TOTAL 0.6 mg/dL (0.2-1.0); CALCIUM, SERUM 8.8 mg/dL (8.5-10.1); CARBON DIOXIDE 27 mmol/L (21-32); CHLORIDE 98 mmol/L (98-107); CREATININE 2.1 mg/dL (0.6-1.3); GLUCOSE 269 mg/dL (74-106); HEMATOCRIT 28 % (39-51); HEMOGLOBIN 8.7 g/dL (13.5-17.5); LYMPHOCYTES # (AUTO) 0.2 /CMM (0.8-4.8); MAGNESIUM 2.5 mg/dL (1.8-2.4); MEAN CORPUSCULAR HGB CONC 32 g/dl (31.0-36.0); MEAN CORPUSCULAR VOLUME 102 fL (80-96); MONOCYTES # (AUTO) 0.1 /CMM (0.1-1.30); MONOCYTES % (AUTO) 2.5 % (2.0-12.0); NEUTROPHILS # (AUTO) 5.4 /CMM (1.8-8.9); NEUTROPHILS % (AUTO) 93.5 % (43.0-81.0); PHOSPHORUS 4.6 mg/dL (2.5-4.9); PLATELET COUNT (AUTO) 184 /CMM (150-450); POTASSIUM 3.4 mmol/L (3.5-5.1); SODIUM SERUM 134 mmol/L (136-145); TOTAL PROTEIN, SERUM 6.9 g/dL (6.4-8.2); UREA NITROGEN, BLOOD 77 mg/dL (7-18); WHITE BLOOD COUNT (AUTO) 5.8 K/uL (4.3-11.0)
[2018-04-22] MEDS: INSULIN REGULAR, HUMAN 100 UNIT/ML 3 ML VIAL SQ PRN ×3 (07:42→17:28)
[2018-04-22] MEDS: IPRATROPIUM NEB FS 0.5 MG/2.5 ML AMPUL.NEB NEB PRN ×2 (07:59→14:11)
[2018-04-22] MEDS: ALBUTEROL FS 2.5 MG/0.5 ML VIAL.NEB NEB PRN ×2 (07:59→14:11)
[2018-04-22 08:00] VITALS: BP 102/73
[2018-04-22] MEDS: FERROUS SULFATE (325 MG) 325 MG/TAB TABLET PO SCH (08:51)
[2018-04-22] MEDS: DILTIAZEM HCL CD 120 MG PO SCH (08:51)
[2018-04-22] MEDS: CALCITRIOL 0.25 MCG CAPSULE PO SCH (08:52)
[2018-04-22] MEDS: METOPROLOL TARTRATE 50 MG TABLET PO SCH ×2 (08:52→17:21)
--- NOTE | 2018-04-22 10:00 | NUR ---
RECEIVED PT AWARE A/O X4 , IN BED. PT ABLE TO MAKE NEEDS KNOWN. WILL CONTINUE TO MONITOR
[2018-04-22] MEDS: POTASSIUM CHLORIDE 20 MEQ TAB.PRT.SR PO SCH ×3 (10:27→13:22)
--- NOTE | 2018-04-22 11:30 | NUR ---
PT BS IS 458 . 15 UNITS OF REGULAR INSULIN GIVEN PER PROTOCOL , MADE MD AWARE.
[2018-04-22 16:00] VITALS: BP 99/58
[2018-04-22] MEDS: CEPHALEXIN MONOHYDRATE 250 MG CAPSULE PO SCH ×2 (17:20→23:21)
[2018-04-22] MEDS: WARFARIN SODIUM 5 MG TABLET PO SCH (17:24)
--- NOTE | 2018-04-22 19:05 | NUR ---
MS RN RECEIVED PT ON BED, A/O X 3, NOT IN ANY FORM OF DISTRESS, RESPIRATIONS EVEN AND UNLABORED, NO SOB NOTED, STABLE CONDITION. SAFETY MEASURES IN PLACE. WILL CONTINUE TO MONITOR.
--- NOTE | 2018-04-22 19:15 | NUR ---
PT AWAKE A/O X4 , VS ARE STABLE. ON O2 2L SATURATION 98%. PT AMBULATORY, ABLE TO MAKE NEEDS KNOWN. NEEDS ATTENDED. WILL ENDORSE TO NEXT SHIFT FOR YOUNG.
[2018-04-22 20:00] VITALS: BP 110/63
[2018-04-22] MEDS: CHOLECALCIFEROL 1,000 UNIT TABLET (VIT D3) PO SCH (21:08)
[2018-04-22] MEDS: ATORVASTATIN 10 MG TABLET PO SCH (21:08)
[2018-04-22] MEDS: INSULIN GLARGINE, 100 UNIT/ML CARTRIDGE SQ SCH (21:10)
[2018-04-22] MEDS: *INSULIN REGULAR(HUMULIN R)HUM 100 UNIT/ML VIAL SQ PRN (21:11)
[2018-04-22] MEDS ORDERED: ALBUTEROL FS 2.5 MG/0.5 ML VIAL.NEB NEB STA (22:16)
[2018-04-22] MEDS ORDERED: IPRATROPIUM NEB FS 0.5 MG/2.5 ML AMPUL.NEB NEB STA (22:16)
--- NOTE | 2018-04-22 22:29 | NUR ---
PAGED DR. HUDSON SPOKE TO HIM RELAYED PT REQUESTED HIS BREATHING TREATMENT PER PT HE IS HAVING SHORTNESS OF BREATH 02 SAT IS 95% 02 2LPM VIA NC. PER DR. HUDSON ORDERED ATROVENT FS NEB 0.5 MG AND VENTOLIN 2.5 MG NEB READ BACK AND VERIFIED ORDERS NOTES AND CARRIED IOUT N Addendum: 04/22/18 at 2240 by CHAN ALMONTE RN X1 ONLY Addendum: 04/24/18 at 0038 by CHAN ALMONTE RN ALL ORDERS ATROVENT AND VENTOLIN ARE UNDER KEVIN HUDSON ALCOHOL LAW ENFORCEMENT AGENT MISTAKEN ENTRY UNDER BINTA.
--- NOTE | 2018-04-22 23:00 | NUR ---
SPOKE TO DR. HUDSON DURING HIS ROUNDS RELAYED PT REQUESTED PRN BREATHING TREATMENT PER DR. BECCA LAYNE TO ORDER ATROVENT FS NEB 0.5 MG Q6RRT FOR SOB PRN AND VENTOLIN 2.5 MG NEB Q6RRT FOR SOB PRN NOTED AND CARRIED OUT Addendum: 04/24/18 at 0038 by CHAN ALMONTE RN LATE ENTRY: ALL ORDERS ATROVENT AND VENTOLIN ARE UNDER KEVIN HUDSON ULTRASONIC SEAMING MACHINE OPERATOR MISTAKEN ENTRY UNDER BINTA.
[2018-04-23] MEDS: ALBUTEROL FS 2.5 MG/0.5 ML VIAL.NEB NEB PRN ×4 (02:29→20:48)
[2018-04-23] MEDS: IPRATROPIUM NEB FS 0.5 MG/2.5 ML AMPUL.NEB NEB PRN ×4 (02:29→20:48)
[2018-04-23 04:00] VITALS: BP_SYST 106; BP_SYST 124; BP_DIAS 47; BP_DIAS 60
[2018-04-23] MEDS: CEPHALEXIN MONOHYDRATE 250 MG CAPSULE PO SCH ×4 (05:13→23:40)
--- NOTE | 2018-04-23 06:17 | NUR ---
RN CLOSING NOTE ASLEEP AND EASILY AWAKEN. ON 2LPM VIA NC 02 SAT AT 96%. NOT IN DISTRESS. STABLE, RESPIRATIONS EVEN AND UNLABORED. NURSING CARE RENDERED, KEPT CLEAN AND DRY AND COMFORT, NEEDS ATTENDED AND ANTICIPATED. 02 SAT WNL THROUGHOUT THE NIGHT SAFETY MEASURES IN PLACE, CALL LIGHT WITHIN REACH. WILL ENDORSE TO THE NEXT SHIFT.
[2018-04-23 07:07] LABS: BASOPHILS % (AUTO) 0.2 % (0.0-2.0); HEMATOCRIT 27 % (39-51); HEMOGLOBIN 8.5 g/dL (13.5-17.5); LYMPHOCYTES # (AUTO) 0.1 /CMM (0.8-4.8); LYMPHOCYTES % (AUTO) 2.1 % (20.0-44.0); MEAN CORPUSCULAR HGB CONC 31 g/dl (31.0-36.0); MEAN CORPUSCULAR VOLUME 102 fL (80-96); MONOCYTES # (AUTO) 0.2 /CMM (0.1-1.30); MONOCYTES % (AUTO) 3.6 % (2.0-12.0); NEUTROPHILS % (AUTO) 94.1 % (43.0-81.0); PLATELET COUNT (AUTO) 148 /CMM (150-450); RED BLOOD CELL COUNT(AUTO) 2.66 MIL/uL (4.5-6.0); WHITE BLOOD COUNT (AUTO) 6.4 K/uL (4.3-11.0)
[2018-04-23 07:32] LABS: ALANINE AMINOTRANSFERASE 23 U/L (12-78); ALBUMIN 3.3 g/dL (3.4-5.0); ALKALINE PHOSPHATASE 43 U/L (46-116); ASPARTATE AMINOTRANSFERASE 13 U/L (15-37); BILIRUBIN,TOTAL 0.6 mg/dL (0.2-1.0); CALCIUM, SERUM 8.8 mg/dL (8.5-10.1); CARBON DIOXIDE 26 mmol/L (21-32); CHLORIDE 101 mmol/L (98-107); CREATININE 2.1 mg/dL (0.6-1.3); GLUCOSE 344 mg/dL (74-106); MAGNESIUM 2.7 mg/dL (1.8-2.4); PHOSPHORUS 4.6 mg/dL (2.5-4.9); SODIUM SERUM 136 mmol/L (136-145); TOTAL PROTEIN, SERUM 6.6 g/dL (6.4-8.2); UREA NITROGEN, BLOOD 74 mg/dL (7-18)
[2018-04-23 08:00] VITALS: BP_SYST 106; BP_SYST 122; BP_DIAS 69; BP_DIAS 70
[2018-04-23] MEDS: INSULIN REGULAR, HUMAN 100 UNIT/ML 3 ML VIAL SQ PRN ×3 (08:10→17:37)
[2018-04-23] MEDS: BLOOD SUGAR DIAGNOSTIC 1 EACH STRIP IN SCH ×4 (08:13→21:18)
--- NOTE | 2018-04-23 08:48 | NUR ---
ATOVENT TX GIVEN ONLY DUE TO HR > 120 BPM Addendum: 04/23/18 at 0849 by CURTIS DURAN RT Amended: Links added.
[2018-04-23] MEDS: METOPROLOL TARTRATE 50 MG TABLET PO SCH ×2 (09:22→17:29)
[2018-04-23] MEDS: DILTIAZEM HCL CD 120 MG PO SCH (09:23)
[2018-04-23] MEDS: CALCITRIOL 0.25 MCG CAPSULE PO SCH (09:23)
[2018-04-23] MEDS: FERROUS SULFATE (325 MG) 325 MG/TAB TABLET PO SCH (09:23)
[2018-04-23] MEDS: methylPREDNISolone SOD SUCC 125 MG/2ML VIAL IV SCH ×2 (09:24→21:11)
[2018-04-23 16:00] VITALS: BP 124/60
[2018-04-23] MEDS: WARFARIN SODIUM 5 MG TABLET PO SCH (17:32)
--- NOTE | 2018-04-23 19:45 | NUR ---
MS RN NOTE: RECEIVED PT ON BED ALERT AND ORIENTED X3. ABLE TO MAKE NEEDS KNOWN. NO APPARENT DISTRESS NOTED. NO COMPLAINTS OF PAIN OR DISCOMFORT AT THIS TIME. ON 2LPM NASAL CANNULA, NO SOB NOTED AT THIS TIME. LEFT FOREARM #22 INTACT AND PATENT, FLUSHING WELL. KEPT CLEAN, DRY AND COMFORTABLE. SAFETY AND FALL PRECAUTIONS OBSERVED AND MAINTAINED. CALL LIGHT WITHIN REACH. WILL CONTINUE TO MONITOR PT.
[2018-04-23 20:00] VITALS: BP 123/68
[2018-04-23] MEDS: ATORVASTATIN 10 MG TABLET PO SCH (21:11)
[2018-04-23] MEDS: CHOLECALCIFEROL 1,000 UNIT TABLET (VIT D3) PO SCH (21:11)
[2018-04-23] MEDS: INSULIN GLARGINE, 100 UNIT/ML CARTRIDGE SQ SCH (21:20)
[2018-04-23] MEDS: *INSULIN REGULAR(HUMULIN R)HUM 100 UNIT/ML VIAL SQ PRN (21:21)
[2018-04-24] MEDS: IPRATROPIUM NEB FS 0.5 MG/2.5 ML AMPUL.NEB NEB PRN ×3 (03:13→19:43)
[2018-04-24] MEDS: ALBUTEROL FS 2.5 MG/0.5 ML VIAL.NEB NEB PRN ×3 (03:13→19:43)
[2018-04-24 04:00] VITALS: BP 106/65
[2018-04-24] MEDS: CEPHALEXIN MONOHYDRATE 250 MG CAPSULE PO SCH ×3 (05:12→17:09)
--- NOTE | 2018-04-24 06:53 | NUR ---
MS RN NOTE: NO CHANGES NOTED THROUGHOUT THE SHIFT. NO APPARENT DISTRESS NOTED. NO COMPLAINTS OF PAIN OR DISCOMFORT NOTED AT THIS TIME. NO SOB NOTED. PT ABLE TO AMBULATE WITH ASSIST. ASSISTED TO THE BATHROOM NEEDED. KEPT CLEAN, DRY AND COMFORTABLE. CALL LIGHT PLACED WITHIN REACH. WILL ENDORSE TO DAY SHIFT RN FOR CONTINUITY OF CARE.
--- NOTE | 2018-04-24 07:15 | NUR ---
RN MS OPENING NOTES RECEIVED IN BEDSIDE REPORT FROM [facility]. PATIENT A/O X4 NO SIGNS OR SYMPTOMS OF RESPIRATORY DISTRESS OR ACUTE PAIN. AMBULATORY IN ROOM WITH ASSIST SKIN INTACT. IV TO LFA #22 SL. NO CONCERNS AT THIS TIME SAFETY PRECAUTIONS IN PLACE BED IN LOW POSITION CALL LIGHT IWTHIN REACH
[2018-04-24 07:18] LABS: HEMATOCRIT 29 % (39-51); HEMOGLOBIN 9.3 g/dL (13.5-17.5); WHITE BLOOD COUNT (AUTO) 7.3 K/uL (4.3-11.0)
[2018-04-24 07:19] LABS: BASOPHILS % (AUTO) 0.1 % (0.0-2.0); LYMPHOCYTES # (AUTO) 0.2 /CMM (0.8-4.8); LYMPHOCYTES % (AUTO) 2.5 % (20.0-44.0); MEAN CORPUSCULAR HGB CONC 32 g/dl (31.0-36.0); MEAN CORPUSCULAR VOLUME 100 fL (80-96); MONOCYTES # (AUTO) 0.4 /CMM (0.1-1.30); NEUTROPHILS # (AUTO) 6.8 /CMM (1.8-8.9); NEUTROPHILS % (AUTO) 92.4 % (43.0-81.0); PLATELET COUNT (AUTO) 180 /CMM (150-450)
[2018-04-24 07:35] LABS: CARBON DIOXIDE 28 mmol/L (21-32); CHLORIDE 102 mmol/L (98-107); GLUCOSE 202 mg/dL (74-106); MAGNESIUM 2.7 mg/dL (1.8-2.4); PHOSPHORUS 3.8 mg/dL (2.5-4.9); POTASSIUM 3.9 mmol/L (3.5-5.1); SODIUM SERUM 138 mmol/L (136-145); UREA NITROGEN, BLOOD 73 mg/dL (7-18)
[2018-04-24] MEDS: BLOOD SUGAR DIAGNOSTIC 1 EACH STRIP IN SCH ×4 (07:59→22:16)
[2018-04-24 08:00] VITALS: BP 109/61
[2018-04-24] MEDS: methylPREDNISolone SOD SUCC 125 MG/2ML VIAL IV SCH ×3 (08:08→21:03)
[2018-04-24] MEDS: CALCITRIOL 0.25 MCG CAPSULE PO SCH (08:08)
[2018-04-24] MEDS: FERROUS SULFATE (325 MG) 325 MG/TAB TABLET PO SCH (08:09)
[2018-04-24] MEDS: DILTIAZEM HCL CD 120 MG PO SCH (08:09)
[2018-04-24] MEDS: METOPROLOL TARTRATE 50 MG TABLET PO SCH ×2 (08:09→17:08)
[2018-04-24] MEDS: INSULIN REGULAR, HUMAN 100 UNIT/ML 3 ML VIAL SQ PRN ×3 (08:12→17:52)
[2018-04-24] MEDS: FUROSEMIDE 40 MG TABLET PO SCH (09:27)
[2018-04-24] MEDS: POTASSIUM CHLORIDE 20 MEQ TAB.PRT.SR PO SCH (09:27)
--- NOTE | 2018-04-24 11:49 | NUR ---
RN MS NOTES BLOOD SUGAR 426 MG/DL 15 UNIT REGULAR INSULIN GIVEN . DEBBIE OLIVIER NOTIFIED NO NEW ORDERS
--- NOTE | 2018-04-24 13:40 | NUR ---
RN MS NOTES PT ACQUIRED SMALL SKIN TEAR TO (R) ELBOW WHILE PULLING HIMSELF UP IN BED. CLEANED , PHOTO TAKEN BANDAGE TO COVER
[2018-04-24 16:00] VITALS: BP 119/68
[2018-04-24] MEDS: WARFARIN SODIUM 5 MG TABLET PO SCH (17:10)
--- NOTE | 2018-04-24 17:30 | NUR ---
RN MS NOTES PATIENT BS 467 MG/DL COVERED WITH 15 UNITS . DEBBIE OLIVIER AWARE NO NEW ORDERS
--- NOTE | 2018-04-24 19:18 | NUR ---
RN MS NOTES NO SIGNIFICANT CHANGES THROUGHOUT THE SHIFT. AMBULATED WITH PATIENT IN [place]. TOLERATED WELL. ORDERS FOR D/C TO SNF/ REHAB AWAITING PLACEMENT AND CONFIRMATION FORM SW. BLOOD SUGARS ELEVATED MD AWARE D/T STEROIDS. WILL ENDORSE TO NOC
[2018-04-24 20:00] VITALS: BP 136/78
[2018-04-24] MEDS: ATORVASTATIN 10 MG TABLET PO SCH (21:00)
--- NOTE | 2018-04-24 21:00 | NUR ---
rn notes received patient awake in bed with no distress noted. alert and oriented x 4. verbally able to communicate needs. no complaint of pain or discomfort. blood sugar level 536. called md and ordered to give 10 + 15 units of insulin. refused solu medrol. patient stated that the doctor said he will change the medication to tablet. md vascular sonographer made aware and said he will order the meds in am. kept clean and dry.
[2018-04-24] MEDS: CHOLECALCIFEROL 1,000 UNIT TABLET (VIT D3) PO SCH (21:01)
[2018-04-24] MEDS: *INSULIN REGULAR(HUMULIN R)HUM 100 UNIT/ML VIAL SQ PRN (22:16)
[2018-04-24] MEDS: INSULIN GLARGINE, 100 UNIT/ML CARTRIDGE SQ SCH (22:18)
[2018-04-24] MEDS: IPRATROPIUM NEB FS 0.5 MG/2.5 ML AMPUL.NEB NEB SCH (23:27)
[2018-04-24] MEDS: ALBUTEROL FS 2.5 MG/0.5 ML VIAL.NEB NEB SCH (23:27)
[2018-04-25] MEDS: CEPHALEXIN MONOHYDRATE 250 MG CAPSULE PO SCH ×4 (00:32→17:25)
[2018-04-25] MEDS: ALBUTEROL FS 2.5 MG/0.5 ML VIAL.NEB NEB SCH ×4 (02:58→14:43)
[2018-04-25] MEDS: IPRATROPIUM NEB FS 0.5 MG/2.5 ML AMPUL.NEB NEB SCH ×4 (02:58→14:43)
[2018-04-25 04:00] VITALS: BP 130/74
[2018-04-25] MEDS ORDERED: CEPHALEXIN MONOHYDRATE 500 MG CAPSULE PO ONE (06:28)
[2018-04-25] MEDS: BLOOD SUGAR DIAGNOSTIC 1 EACH STRIP IN SCH (07:30)
[2018-04-25 08:00] VITALS: BP 113/78
[2018-04-25] MEDS ORDERED: predniSONE 20 MG TABLET PO SCH (09:00)
[2018-04-25] MEDS: FUROSEMIDE 40 MG TABLET PO SCH (09:30)
[2018-04-25] MEDS: FERROUS SULFATE (325 MG) 325 MG/TAB TABLET PO SCH (09:30)
[2018-04-25] MEDS: CALCITRIOL 0.25 MCG CAPSULE PO SCH (09:30)
[2018-04-25] MEDS: METOPROLOL TARTRATE 50 MG TABLET PO SCH ×2 (09:30→17:25)
[2018-04-25] MEDS: DILTIAZEM HCL CD 120 MG PO SCH (09:31)
[2018-04-25] MEDS: POTASSIUM CHLORIDE 20 MEQ TAB.PRT.SR PO SCH (09:31)
[2018-04-25] MEDS: *INSULIN REGULAR(HUMULIN R)HUM 100 UNIT/ML VIAL SQ PRN (09:34)
[2018-04-25 12:00] VITALS: BP 120/67
[2018-04-25] MEDS ORDERED: DEXTROSE 50%-WATER 50 ML DISP.SYRIN IV PRN (14:00)
[2018-04-25] MEDS ORDERED: INSULIN REGULAR, HUMAN 100 UNIT/ML 3 ML VIAL SQ PRN (14:00)
[2018-04-25] MEDS ORDERED: *INSULIN REGULAR(HUMULIN R)HUM 100 UNIT/ML VIAL SQ PRN (14:00)
[2018-04-25 16:00] VITALS: BP 120/67
[2018-04-25 17:25] VITALS: BP 120/67
[2018-04-25] MEDS: WARFARIN SODIUM 5 MG TABLET PO SCH (17:26)
[2018-04-25] MEDS ORDERED: BLOOD SUGAR DIAGNOSTIC 1 EACH STRIP IN SCH (17:30)
== END 2018-04-25 17:30 | DRG 291 ==
LOC: ER 12:24 → TELE1 13:51 → MEDSG1 04-20 09:53
PROVIDERS: ATTEND Nurse Practitioner Acute Care
DX: I13.0 Hypertensive heart and chronic kidney disease with heart failure and stage 1 through stage 4 chronic kidney disease, or unspecified chronic kidney disease (principal); I50.23 Acute on chronic systolic (congestive) heart failure; N17.0 Acute kidney failure with tubular necrosis; J44.1 Chronic obstructive pulmonary disease with (acute) exacerbation; N39.0 Urinary tract infection, site not specified; I48.0 Paroxysmal atrial fibrillation; Z86.73 Personal history of transient ischemic attack (TIA), and cerebral infarction without residual deficits; N18.9 Chronic kidney disease, unspecified; E11.22 Type 2 diabetes mellitus with diabetic chronic kidney disease; I25.10 Atherosclerotic heart disease of native coronary artery without angina pectoris; E78.5 Hyperlipidemia, unspecified; Z87.891 Personal history of nicotine dependence; I27.20 Pulmonary hypertension, unspecified; Z79.01 Long term (current) use of anticoagulants; R16.2 Hepatomegaly with splenomegaly, not elsewhere classified; N28.1 Cyst of kidney, acquired; E11.65 Type 2 diabetes mellitus with hyperglycemia; B95.8 Unspecified staphylococcus as the cause of diseases classified elsewhere; D64.9 Anemia, unspecified; Z79.4 Long term (current) use of insulin; Z95.0 Presence of cardiac pacemaker
CPT/HCPCS: 36415; 71045-TC; 78582; 80048-TC; 80053-TC; 80061-TC; 80076-TC; 81000-TC; 82962-TC; 83605-TC; 83735-TC; 83880; 84100-TC; 84443-TC; 84484-TC; 85025-TC; 85610-TC; 85730-TC; 87040-TC; 87081-TC; 87086-TC; 87186-TC; 93307-TC; 93971-TC; 94799-TC; A9540; A9567; G0378; J1815; J1940; J2930